=== PATIENT | male | born 1940 | race Caucasian/White ===

== ENCOUNTER → 2020-09-10 12:20 | Outpatient (CLI) | payer MEDICARE, OTHER, SELFPAY ==
[2020-09-10 21:20] LABS: COVID19 - ORCAS (NP or Nasal) Negative (Negative)
== END ==
PROVIDERS: Family Provider Family Medicine; PCP Family Medicine; Visit Provider Family Medicine
DX: Z20.822 Contact with and (suspected) exposure to COVID-19 (principal)
CPT/HCPCS: U0003

== ENCOUNTER → 2020-09-27 12:46 | Outpatient (CLI) | payer MEDICARE, SELFPAY ==
[2020-09-27 23:12] LABS: COVID19 - ORCAS (NP or Nasal) Negative (Negative)
== END ==
PROVIDERS: Family Provider Family Medicine; PCP Family Medicine; Visit Provider Family Medicine
DX: Z20.822 Contact with and (suspected) exposure to COVID-19 (principal)
CPT/HCPCS: U0003

== ENCOUNTER 2020-09-28 09:58 | Day surgery (SDC) | payer MEDICARE, OTHER, SELFPAY ==
[2020-09-28 10:39] VITALS: BP 115/69; PULSE 64; RESP 16; TEMP 36.6; O2SAT 96; BMI 30.1
[2020-09-28] MEDS: PROPARACAINE 0.5% OPHTH SOL 2 DROPS EYE-OP (10:39)
[2020-09-28] MEDS: CATARACT EYE COMPOUND (10 DROPS/SYRINGE) 3 DROPS EYE-OP (10:39)
--- NOTE | 2020-09-28 11:57 | PM.PREOP ---
Pre-operative Note Interval Note History & Physical reviewed/Exam performed by Physician: Yes Changes to H&P: No
--- NOTE | 2020-09-28 11:57 | PM.OP.1 ---
Operative Date/Time/Diagnoses Pre-op diagnosis: Nuclear cataract right eye Procedure & Clinicians Procedure: Cataract Surgery Same procedure as scheduled: Yes Surgeon: Fito Arnett Anesthesia Type: MAC +/- and Sedation Operative Notes Procedure in detail: Patient brought to the operating suite. Tetracaine drops placed in the right eye. Patient was prepped and draped in sterile manner. Wire lid speculum was placed in the eye. Betadine drops were placed on the eye. This was irrigated. Lidocaine jelly was placed on the eye. A paracentesis port was created with a side-port blade. 0.1 mL 1% preservative free lidocaine was injected into the anterior chamber. The anterior chamber was deepened with viscoelastic. 2.6 mm keratome was used to create a temporal clear corneal incision. Cystotome and Utrata forceps were used to create continuous tear capsulorrhexis. Balanced salt solution was used to hydro dissect the nucleus. The phacoemulsification handpiece was inserted and the nucleus was removed using the stop and chop technique. The irrigation aspiration handpiece was inserted and the remaining cortex was removed. Anterior chamber was deepened with viscoelastic. An Fowler DIB00 intraocular lens with a power of 22.5 was injected into the capsular bag. Irrigation aspiration handpiece was inserted and the remaining viscoelastic was removed. Incision was hydrated with balanced salt solution and found to be leak free with pressure with Weck-Luna sponges. 0.1 mL Vigamox injected anterior chamber. 0.3 mL Kenalog 10 mg was injected subconjunctivally. Lid speculum was removed. The patient left the operating room in excellent condition. Complications: none Post-operative Condition: stable Disposition: same day surgery
[2020-09-28] MEDS: PHENYLEPHRINE/LIDOCAINE VIAL (OR) 0.2 ML EYE-OP (12:15)
[2020-09-28] MEDS: TRIAMCINOLONE 50 MG/5 ML VIAL INJ (12:15)
[2020-09-28] MEDS: MOXIFLOXACIN INJ 4 MG/0.8 ML VIAL 0.5 MG EYE-OP (12:15)
[2020-09-28] MEDS: LIDOCAINE 2% (GLYDO) 6 ML GEL TOP (12:16)
[2020-09-28] MEDS: BALANCED SALT IRRIG SOLN NO.2 500 ML, EPINEPHrine 1 MG IRR (12:16)
[2020-09-28] MEDS: TETRACAINE 0.5% OPHTH DROPS 4 ML 2 DROPS EYE-OP (12:16)
[2020-09-28] MEDS: CHONDROIDTIN/SOD HYALURONATE 1.05 ML SYRINGE INTRAOCULA (12:16)
[2020-09-28 12:32] VITALS: BP 118/78; PULSE 60; RESP 14; TEMP 36.7; O2SAT 96
== END 2020-09-28 12:40 | disposition home or self-care (01) ==
PROVIDERS: Family Provider Family Medicine; PCP Internal Medicine; Referring Provider Family Medicine; Visit Provider Ophthalmology
PROC: (CPT 66984; principal; 2020-09-28 12:15)
DX: H25.11 Age-related nuclear cataract, right eye (principal); I10 Essential (primary) hypertension; E78.5 Hyperlipidemia, unspecified; I48.91 Unspecified atrial fibrillation; I51.9 Heart disease, unspecified
CPT/HCPCS: 66984; J0171; J2250; J3010; J3301

== ENCOUNTER → 2020-10-11 13:06 | Outpatient (CLI) | payer MEDICARE, OTHER, SELFPAY ==
[2020-10-11 20:32] LABS: COVID19 - ORCAS (NP or Nasal) Negative (Negative)
== END ==
PROVIDERS: Family Provider Family Medicine; PCP Internal Medicine; Visit Provider Internal Medicine
DX: Z20.822 Contact with and (suspected) exposure to COVID-19 (principal)
CPT/HCPCS: C9803; U0003

== ENCOUNTER 2020-10-12 08:40 | Day surgery (SDC) | payer MEDICARE, OTHER, SELFPAY ==
[2020-10-12 09:38] VITALS: BMI 30.8
[2020-10-12] MEDS: PROPARACAINE 0.5% OPHTH SOL 2 DROPS EYE-OP (09:40)
[2020-10-12] MEDS: CATARACT EYE COMPOUND (10 DROPS/SYRINGE) 3 DROPS EYE-OP (09:45)
[2020-10-12 09:46] VITALS: BP 122/69; PULSE 56; RESP 16; TEMP 37.1; O2SAT 97
--- NOTE | 2020-10-12 10:37 | P.OP_ITS ---
Operative Date/Time/Diagnoses Pre-op diagnosis: Nuclear Cataract Left eye Post-op diagnosis: same Procedure & Clinicians Same procedure as scheduled: Yes Surgeon: Fito Arnett Anesthesia Type: MAC +/- and Sedation Operative Notes Procedure in detail: Patient brought to the operating suite. Tetracaine drops placed in the left eye. Patient was prepped and draped in sterile manner. Wire lid speculum was placed in the eye. Betadine drops were placed on the eye. This was irrigated. Lidocaine jelly was placed on the eye. A paracentesis port was created with a side-port blade. 0.1 mL 1% preservative free lidocaine was injected into the anterior chamber. The anterior chamber was deepened with viscoelastic. 2.6 mm keratome was used to create a temporal clear corneal incision. Cystotome and Utrata forceps were used to create continuous tear capsulorrhexis. Balanced salt solution was used to hydro dissect the nucleus. The phacoemulsification handpiece was inserted and the nucleus was removed using the stop and chop technique. The irrigation aspiration handpiece was inserted and the remaining cortex was removed. During cortex removal a tear was visuali zed in the posterior capsule. This did not extend past the pupil and no vitreous presented. Anterior chamber was deepened with viscoelastic. The incision was enlarged. An Fowler [id number] intraocular lens with a power of 20.5 was injected into the sulcus. Irrigation aspiration handpiece was inserted and the remaining viscoelastic was removed. 0.1 ml miostat was injected in to the anterior chamber and the iris constricted. Incision was hydrated with balanced salt solution and found to be leak free with pressure with Weck-Luna sponges. 0.1 mL Vigamox injected anterior chamber. 0.3 mL Kenalog 10 mg was injected subconjunctivally. Lid speculum was removed. The patient left the operating room in excellent condition. Complications: none Post-operative Condition: stable Disposition: same day surgery
--- NOTE | 2020-10-12 10:37 | PM.PREOP ---
Pre-operative Note Interval Note History & Physical reviewed/Exam performed by Physician: Yes Changes to H&P: No
[2020-10-12] MEDS: TRIAMCINOLONE 50 MG/5 ML VIAL INJ (10:55)
[2020-10-12] MEDS: MOXIFLOXACIN INJ 4 MG/0.8 ML VIAL 0.5 MG EYE-OP (10:55)
[2020-10-12] MEDS: PHENYLEPHRINE/LIDOCAINE VIAL (OR) 0.2 ML EYE-OP (10:55)
[2020-10-12] MEDS: CHONDROIDTIN/SOD HYALURONATE 1.05 ML SYRINGE INTRAOCULA (10:56)
[2020-10-12] MEDS: TETRACAINE 0.5% OPHTH DROPS 4 ML 2 DROPS EYE-OP (10:56)
[2020-10-12] MEDS: BALANCED SALT IRRIG SOLN NO.2 500 ML, EPINEPHrine 1 MG IRR (10:56)
[2020-10-12] MEDS: LIDOCAINE 2% (GLYDO) 6 ML GEL TOP (10:56)
[2020-10-12] MEDS: CARBACHOL 1.5 ML VIAL INJ (11:07)
[2020-10-12 11:25] VITALS: BP 107/66; PULSE 58; RESP 16; TEMP 36.6; O2SAT 94
== END 2020-10-12 11:30 | disposition home or self-care (01) ==
PROVIDERS: Family Provider Family Medicine; PCP Internal Medicine; Referring Provider Ophthalmology; Visit Provider Ophthalmology
PROC: (CPT 66984; principal; 2020-10-12 10:45)
DX: H25.12 Age-related nuclear cataract, left eye (principal); E78.5 Hyperlipidemia, unspecified; I48.91 Unspecified atrial fibrillation; I11.0 Hypertensive heart disease with heart failure; E11.9 Type 2 diabetes mellitus without complications; Z79.01 Long term (current) use of anticoagulants
CPT/HCPCS: 66984; J0171; J2250; J3010; J3301

== ENCOUNTER → 2020-11-26 11:06 | Outpatient (CLI) | payer MEDICARE, OTHER, SELFPAY ==
[2020-11-27 07:42] LABS: Estimated Glomerular Filt Rate > 60.0 mL/min (>60)
== END ==
PROVIDERS: Family Provider Family Medicine; PCP Internal Medicine; Visit Provider Student in an Organized Health Care Education/Training Program
DX: R73.03 Prediabetes (principal); I71.4 Abdominal aortic aneurysm, without rupture
CPT/HCPCS: 82550; 82565

== ENCOUNTER → 2020-12-31 10:50 | Outpatient (CLI) | payer MEDICARE, OTHER, SELFPAY ==
[2020-12-31 21:59] LABS: COVID19 - ORCAS (NP or Nasal) Negative (Negative)
== END ==
PROVIDERS: Family Provider Family Medicine; PCP Internal Medicine; Visit Provider Physician Assistant Medical
DX: Z20.822 Contact with and (suspected) exposure to COVID-19 (principal)
CPT/HCPCS: U0003

== ENCOUNTER → 2021-02-25 08:34 | Outpatient (CLI) | payer MEDICARE, OTHER, SELFPAY ==
[2021-02-25 19:00] LABS: Basophils Absolute Auto 100 /uL (0-100); Eosinophils Absolute Auto 200 /uL (0-450); Hematocrit 41.1 % (41-53); Hemoglobin 13.7 g/dL (13.5-17.5); Lymphocytes Absolute Auto 1100 /uL (1100-4500); Lymphocytes Percent Auto 16.4 % (25-40); Mean Corpuscular Hemoglobin 31.6 PG (26-34); Monocytes Absolute Auto 700 /uL (0-900); Neutrophils Absolute Auto 4700 /uL (1500-7000)
[2021-02-25 19:06] LABS: Add Manual Diff / Slide Review NO; Basophils Percent Auto 1.3 % (0-2); Eosinophils Percent Auto 2.6 % (2-4); Mean Corpuscular HGB Conc 33.4 % (30-36); Mean Corpuscular Volume 94.4 fL (80-100); Monocytes Percent Auto 10.4 % (3-14); Neutrophils Percent Auto 69.3 % (50-75); Platelet Count 265 X10^3/uL (150-400); Red Blood Cell Count 4.35 X10^6/uL (4.5-5.9); Red Cell Distribution Width 13.3 % (11.6-14.8); White Blood Cell Count 6.8 X10^3/uL (4.5-11.0)
[2021-02-25 19:14] LABS: Alanine Aminotransferase 29 IU/L (<50); Albumin 3.9 g/dL (3.5-5.0); Albumin Globulin Ratio 1.3 (1.0-2.8); Alkaline Phosphatase 69 U/L (38-126); Aspartate Aminotransferase 31 IU/L (17-59); BUN Creatinine Ratio 27.3 (6-22); Bilirubin Total 0.6 mg/dL (0.2-1.3); Blood Urea Nitrogen 18 mg/dL (9-20); Calcium 10.4 mg/dL (8.4-10.2); Carbon Dioxide 27 mmol/L (22-32); Chloride 106 mmol/L (98-107); Cholesterol 122 mg/dL (140-199); Estimated Glomerular Filt Rate > 60.0 mL/min (>60); Globulin 2.9 g/dL (1.7-4.1); Glucose 117 mg/dL (80-110); HDL Cholesterol 44 mg/dL (40-60); HEMOLYSIS < 15 (0-50); LDL Cholesterol Calculated 57 mg/dL (<100); Potassium 4.4 mmol/L (3.4-5.1); Sodium 138 mmol/L (137-145); Total Protein 6.8 g/dL (6.3-8.2); Triglycerides 106 mg/dL (35-150)
[2021-02-25 19:20] LABS: Appearance Urine UA CLEAR; Bilirubin Urine UA NEGATIVE (NEGATIVE); Color Urine UA YELLOW; Glucose Urine UA NEGATIVE (Negative); Ketones Urine UA NEGATIVE (NEGATIVE); Leukocyte Esterase Urine UA NEGATIVE (NEGATIVE); Nitrite Urine UA NEGATIVE (Negative); Occult Blood Urine UA 3+ (Negative); Protein Urine UA NEGATIVE (Negative); Urobilinogen Urine UA 0.2 E.U./dL (0.2)
[2021-02-25 19:33] LABS: Bacteria Urine None Seen; Culture Indicated Urine Cult Not Indicated; RBC Urine 5-10/HPF (0-5/HPF); Squamous Epithelial Cell Urine 0-1 /HPF (0-5/HPF); WBC Urine 0-1/HPF (0-5/HPF)
== END ==
PROVIDERS: Family Provider Family Medicine; PCP Internal Medicine; Visit Provider Family Medicine
DX: R31.9 Hematuria, unspecified (principal); R73.03 Prediabetes; I10 Essential (primary) hypertension
CPT/HCPCS: 80053; 80061; 81001; 83036; 85025

== ENCOUNTER → 2021-05-25 08:55 | Outpatient (CLI) | payer MEDICARE, OTHER, SELFPAY ==
[2021-05-25 20:20] LABS: COVID19 - ORCAS (NP or Nasal) Negative (Negative)
== END ==
PROVIDERS: Family Provider Family Medicine; PCP Internal Medicine; Visit Provider Physician Assistant
DX: Z20.822 Contact with and (suspected) exposure to COVID-19 (principal)
CPT/HCPCS: C9803; U0003

== ENCOUNTER → 2022-04-06 10:53 | Outpatient (CLI) | payer MEDICARE, OTHER, SELFPAY ==
[2022-04-06 20:01] LABS: Alanine Aminotransferase 39 IU/L (<50); Albumin Globulin Ratio 1.1 (1.0-2.8); Alkaline Phosphatase 60 U/L (38-126); Aspartate Aminotransferase 35 IU/L (17-59); BUN Creatinine Ratio 28.6 (6-22); Bilirubin Total 0.5 mg/dL (0.2-1.3); Blood Urea Nitrogen 22 mg/dL (9-20); Carbon Dioxide 27 mmol/L (22-32); Chloride 106 mmol/L (98-107); Estimated Glomerular Filt Rate > 60 mL/min (>60); Globulin 3.5 g/dL (1.7-4.1); Glucose 93 mg/dL (80-110); HEMOLYSIS < 15 (0-50); Hemoglobin A1C% w Est Avg Glu 6.1 % (4.0-6.0); Potassium 4.4 mmol/L (3.4-5.1); Sodium 139 mmol/L (137-145); Total Protein 7.5 g/dL (6.3-8.2)
[2022-04-06 20:28] LABS: Thyroid Stimulating Hormone 2.41 uIU/mL (0.47-4.68)
== END ==
PROVIDERS: Family Provider Family Medicine; PCP Family Medicine; Visit Provider Family Medicine
DX: R73.03 Prediabetes (principal); I10 Essential (primary) hypertension
CPT/HCPCS: 80053; 83036; 84443

== ENCOUNTER → 2022-05-23 10:55 | Outpatient (CLI) | payer MEDICARE, OTHER, SELFPAY ==
[2022-05-23 19:31] LABS: Hemoglobin A1C% w Est Avg Glu 6.3 % (4.0-6.0)
[2022-05-23 19:38] LABS: Add Manual Diff / Slide Review NO; Basophils Absolute Auto 100 /uL (0-100); Basophils Percent Auto 1.2 % (0-2); Eosinophils Absolute Auto 200 /uL (0-450); Eosinophils Percent Auto 2.7 % (2-4); Hematocrit 41.1 % (41-53); Hemoglobin 13.6 g/dL (13.5-17.5); Lymphocytes Absolute Auto 1400 /uL (1100-4500); Lymphocytes Percent Auto 17.5 % (25-40); Mean Corpuscular HGB Conc 33.2 % (30-36); Mean Corpuscular Hemoglobin 31.3 PG (26-34); Mean Corpuscular Volume 94.2 fL (80-100); Monocytes Absolute Auto 800 /uL (0-900); Monocytes Percent Auto 10.8 % (3-14); Neutrophils Absolute Auto 5300 /uL (1500-7000); Neutrophils Percent Auto 67.8 % (50-75); Platelet Count 230 X10^3/uL (150-400); Red Blood Cell Count 4.37 X10^6/uL (4.5-5.9); Red Cell Distribution Width 13.7 % (11.6-14.8); White Blood Cell Count 7.8 X10^3/uL (4.5-11.0)
[2022-05-23 19:41] LABS: Cholesterol 169 mg/dL (140-199); HDL Cholesterol 51 mg/dL (40-60); LDL Cholesterol Calculated 67 mg/dL (<100); Triglycerides 255 mg/dL (35-150); Uric Acid 3.7 mg/dL (3.5-8.5)
[2022-05-23 19:49] LABS: Creatinine Urine Random 40.4 mg/dL
[2022-05-23 19:53] LABS: Microalbumi Creatinin Ratio Ur 34.6 ug/mg CR (<30); Microalbumin Urine Random 1.4 mg/dL (0-1.6)
[2022-05-23 20:25] LABS: Vitamin B12 283 pg/mL (239-931)
[2022-05-25 14:04] LABS: Albumin 3.6 g/dL (2.9-4.4); Alpha-1-Globulin 0.2 g/dL (0.0-0.4); Alpha-2-Globulin 0.9 g/dL (0.4-1.0); Gamma Globulin 1.2 g/dL (0.4-1.8); Globulin Total 3.5 g/dL (2.2-3.9); Protein, Total 7.1 g/dL (6.0-8.5)
== END ==
PROVIDERS: Physician Assistant; Family Provider Family Medicine; PCP Family Medicine; Visit Provider Family Medicine
DX: I10 Essential (primary) hypertension (principal); R73.09 Other abnormal glucose; E74.39 Other disorders of intestinal carbohydrate absorption; E78.2 Mixed hyperlipidemia; E83.52 Hypercalcemia; F32.5 Major depressive disorder, single episode, in full remission; G62.9 Polyneuropathy, unspecified; I25.118 Atherosclerotic heart disease of native coronary artery with other forms of angina pectoris; I48.20 Chronic atrial fibrillation, unspecified; M10.9 Gout, unspecified; R26.89 Other abnormalities of gait and mobility; Z95.828 Presence of other vascular implants and grafts
CPT/HCPCS: 80061; 82043; 82570; 82607; 83036; 84155; 84165; 84550; 85025

== ENCOUNTER → 2023-02-15 09:58 | Outpatient (CLI) | payer MEDICARE, OTHER, SELFPAY ==
[2023-02-15 20:02] LABS: Add Manual Diff / Slide Review NO; Basophils Absolute Auto 100 /uL (0-100); Basophils Percent Auto 0.8 % (0-2); Eosinophils Absolute Auto 200 /uL (0-450); Eosinophils Percent Auto 3.1 % (2-4); Hematocrit 41.7 % (41-53); Hemoglobin 14.1 g/dL (13.5-17.5); Lymphocytes Absolute Auto 1300 /uL (1100-4500); Lymphocytes Percent Auto 17.8 % (25-40); Mean Corpuscular HGB Conc 33.8 % (30-36); Mean Corpuscular Hemoglobin 32.3 PG (26-34); Mean Corpuscular Volume 95.6 fL (80-100); Monocytes Absolute Auto 800 /uL (0-900); Monocytes Percent Auto 11.4 % (3-14); Neutrophils Absolute Auto 4700 /uL (1500-7000); Neutrophils Percent Auto 66.9 % (50-75); Platelet Count 232 X10^3/uL (150-400); Red Blood Cell Count 4.37 X10^6/uL (4.5-5.9); Red Cell Distribution Width 13.7 % (11.6-14.8)
[2023-02-15 20:12] LABS: Creatinine Urine Random 31.7 mg/dL
[2023-02-15 20:16] LABS: Hemoglobin A1C% w Est Avg Glu 5.8 % (4.0-6.0)
[2023-02-15 20:18] LABS: Microalbumi Creatinin Ratio Ur 72.5 ug/mg CR (<30); Microalbumin Urine Random 2.3 mg/dL (0-1.6)
[2023-02-15 20:20] LABS: Blood Urea Nitrogen 15 mg/dL (9-20); Calcium 10.5 mg/dL (8.4-10.2); Carbon Dioxide 25 mmol/L (22-32); Chloride 103 mmol/L (98-107); Cholesterol 144 mg/dL (140-199); Estimated Glomerular Filt Rate > 60 mL/min (>60); Glucose 128 mg/dL (80-110); HDL Cholesterol 43 mg/dL (40-60); HEMOLYSIS < 15 (0-50); LDL Cholesterol Calculated 60 mg/dL (<100); Potassium 4.6 mmol/L (3.4-5.1); Sodium 136 mmol/L (137-145); Triglycerides 205 mg/dL (35-150)
[2023-02-15 21:09] LABS: Erythrocyte Sedimentation Rate 15 MM/HR (0-15)
== END ==
PROVIDERS: Family Provider Family Medicine; PCP Family Medicine; Visit Provider Family Medicine
DX: E11.9 Type 2 diabetes mellitus without complications (principal); I10 Essential (primary) hypertension; E78.5 Hyperlipidemia, unspecified; G62.9 Polyneuropathy, unspecified; I25.118 Atherosclerotic heart disease of native coronary artery with other forms of angina pectoris; I48.20 Chronic atrial fibrillation, unspecified
CPT/HCPCS: 80048; 80061; 82043; 82570; 83036; 85025; 85651

== ENCOUNTER → 2023-06-13 12:10 | Outpatient (CLI) | payer MEDICARE, OTHER, SELFPAY ==
[2023-06-13 19:53] LABS: Crystals Body Fluid - IN-HOUSE NONE Present
== END ==
PROVIDERS: Family Provider Family Medicine; PCP Family Medicine; Visit Provider Family Medicine
DX: M70.20 Olecranon bursitis, unspecified elbow (principal); M10.9 Gout, unspecified
CPT/HCPCS: 87070; 87075; 87205; 89060

== ENCOUNTER → 2023-07-12 11:23 | Outpatient (CLI) | payer OTHER, SELFPAY ==
[2023-07-12 19:28] LABS: Crystals Body Fluid - IN-HOUSE NONE Present
== END ==
PROVIDERS: Family Provider Family Medicine; PCP Family Medicine; Visit Provider Physician Assistant Medical
DX: M25.522 Pain in left elbow (principal); M70.20 Olecranon bursitis, unspecified elbow
CPT/HCPCS: 87070; 87075; 87077; 87147; 87186; 87205; 89060

== ENCOUNTER → 2023-07-25 10:27 | Outpatient (CLI) | payer MEDICARE, OTHER, SELFPAY ==
--- NOTE | 2023-07-25 10:30 | DI.MRI.S_ITS ---
PROCEDURE: MR ELBOW LT WO/W CON INDICATIONS: Recurrent infection elbow TECHNIQUE: Noncontrast coronal proton density fast spin echo and T2 fast spin echo with fat saturation, coronal T1 spin echo with fat saturation, axial and sagittal T1 spin echo and T2 fast spin echo with fat saturation through the elbow. Post-contrast coronal, axial, and sagittal T1 spin echo with fat saturation through the elbow. COMPARISON: None. FINDINGS: Image quality: Excellent. Lateral structures: The lateral ulnar collateral ligament and radial collateral ligament both appear intact. The overlying common extensor tendon also appears normal. Medial structures: The ulnar collateral ligament appears intact. The overlying common flexor tendon appears normal. The ulnar nerve appears normal in size and signal within the cubital tunnel. Anterior structures: The biceps and brachialis tendons both appear intact as they insert onto the proximal radius and ulna, respectively. No bicipitoradial bursal fluid. The median and radial neurovascular bundles appear normal; no focal muscle atrophy to suggest nerve impingement. Posterior structures: Thick-walled peripherally enhancing fluid collection measuring 3.9 x 1.5 by 3.0 cm is seen overlying the olecranon. There is a small fluid-filled tract extending through the central portion of the distal triceps tendon and extending proximally along the deep margin of the triceps tendon. There is focal high-grade partial tearing of the triceps tendon at the central portion of the distal insertion. The far medial and lateral portions of the triceps insertion are intact. Muscular insertions onto the posterior olecranon are intact. Soft tissue edema is seen throughout the posterior elbow. Bone and cartilage: Trace osseous edema is seen at the posterior olecranon. No definite osseous erosion is seen. The remaining osseous structures demonstrate normal signal intensity. No significant elbow effusion. IMPRESSION: 1. Peripherally enhancing fluid collection in the subcutaneous tissues posterior to the elbow measuring 3.9 x 1.5 x 3.0 cm, which may represent an abscess or infected olecranon bursal effusion. Fluid-filled tract extends through the adjacent triceps tendon and approximately along the deep tendon margin. 2. Focal high-grade partial width tearing of the distal triceps tendon at the insertion. 3. Trace osseous edema at the posterior olecranon without osseous erosion, likely reactive rather than secondary to osteomyelitis. No joint effusion or signs of septic arthritis. Approved by: Enio Light M.D. on 07/25/2023 at 13:53
== END ==
PROVIDERS: Family Provider Family Medicine; PCP Family Medicine; Referring Provider Family Medicine; Visit Provider Family Medicine
DX: M70.22 Olecranon bursitis, left elbow (principal); S46.312A Strain of muscle, fascia and tendon of triceps, left arm, initial encounter
CPT/HCPCS: 73223; A9579

== ENCOUNTER → 2023-09-03 12:20 | Outpatient (CLI) | payer MEDICARE, OTHER, SELFPAY ==
--- NOTE | 2023-09-03 12:21 | DI.MRI.S_ITS ---
PROCEDURE: MR LUMBAR SPINE WO CON INDICATIONS: Ba in low back radiating to legs TECHNIQUE: Noncontrast sagittal T1 spin echo and T2 fast echo, sagittal STIR, and T2 fast spin echo through the lumbar spine. In cases with scoliosis, additional coronal T2 fast spin echo may be performed. COMPARISON: None. FINDINGS: Image quality: Excellent. Alignment and Curvature: Mild retrolisthesis of L1 on L2, L2 on L3. Grade 1 anterolisthesis of L4 on L5. Mild retrolisthesis of L5 on S1. Bone Marrow: Mild fibrovascular endplate change at T11-T12. Spinal Cord: Conus medullaris terminates at the T12-L1 level. Visualized cord demonstrates normal signal and size. Paraspinous Soft Tissues: No paravertebral masses. T12-L1: Mild bilateral facet arthropathy. No stenosis. L1-L2: Posterior disc uncovering. Moderate bilateral facet arthropathy. Mild right neural foraminal stenosis. No left neural foraminal stenosis. No central canal stenosis. L2-L3: Posterior disc uncovering. Moderate bilateral facet arthropathy. Epidural lipomatosis. Moderate central canal stenosis. Mild right neural foraminal stenosis. No left neural foraminal stenosis. L3-L4: Mild disc bulge. Moderate bilateral facet arthropathy. Epidural lipomatosis. Moderate central canal stenosis. Mild left neural foraminal stenosis. No right neural foraminal stenosis. L4-L5: Posterior disc uncovering. Severe bilateral facet arthropathy. Moderate to severe central canal stenosis. No left neural foraminal stenosis. Mild right neural foraminal stenosis. L5-S1: Disc bulge. Mild bilateral facet arthropathy. No central canal stenosis. Mild right and left neural foraminal stenosis. Visualized sacrum is unremarkable. Large infrarenal abdominal aortic aneurysm, partially visualized. Right pelviectasis. Left renal cyst. IMPRESSION: 1. Large infrarenal abdominal aortic aneurysm, partially visualized. Recommend further evaluation with aortic ultrasound. 2. 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 Dictated by: Jeanna Martínez M.D. on 09/03/2023 at 14:42 Approved by: Jeanna Martínez M.D. on 09/03/2023 at 14:52
== END ==
PROVIDERS: Family Provider Family Medicine; PCP Family Medicine; Referring Provider Family Medicine; Visit Provider Family Medicine
DX: M48.062 Spinal stenosis, lumbar region with neurogenic claudication (principal); M48.07 Spinal stenosis, lumbosacral region; M47.816 Spondylosis without myelopathy or radiculopathy, lumbar region; M47.817 Spondylosis without myelopathy or radiculopathy, lumbosacral region; I71.43 Infrarenal abdominal aortic aneurysm, without rupture; M21.371 Foot drop, right foot; N28.1 Cyst of kidney, acquired
CPT/HCPCS: 72148

== ENCOUNTER → 2023-09-19 10:35 | Outpatient (CLI) | payer MEDICARE, OTHER, SELFPAY ==
[2023-09-19 19:27] LABS: Add Manual Diff / Slide Review NO; Basophils Absolute Auto 100 /uL (0-100); Basophils Percent Auto 0.8 % (0-2); Eosinophils Absolute Auto 100 /uL (0-450); Eosinophils Percent Auto 2.1 % (2-4); Hemoglobin 14.3 g/dL (13.5-17.5); Lymphocytes Absolute Auto 1200 /uL (1100-4500); Mean Corpuscular HGB Conc 33.9 % (30-36); Mean Corpuscular Hemoglobin 32.3 PG (26-34); Mean Corpuscular Volume 95.3 fL (80-100); Monocytes Absolute Auto 700 /uL (0-900); Monocytes Percent Auto 10.6 % (3-14); Neutrophils Absolute Auto 4700 /uL (1500-7000); Neutrophils Percent Auto 68.5 % (50-75); Platelet Count 256 X10^3/uL (150-400); Red Blood Cell Count 4.41 X10^6/uL (4.5-5.9); Red Cell Distribution Width 13.6 % (11.6-14.8); White Blood Cell Count 6.9 X10^3/uL (4.5-11.0)
[2023-09-19 19:48] LABS: Creatinine Urine Random 58.2 mg/dL
[2023-09-19 19:54] LABS: Microalbumi Creatinin Ratio Ur 99.6 ug/mg CR (<30); Microalbumin Urine Random 5.8 mg/dL (0-1.6)
[2023-09-19 19:58] LABS: Alanine Aminotransferase 58 IU/L (<50); Albumin 4.7 g/dL (3.5-5.0); Albumin Globulin Ratio 1.5 (1.0-2.8); Alkaline Phosphatase 65 U/L (38-126); Aspartate Aminotransferase 44 IU/L (17-59); BUN Creatinine Ratio 20.5 (6-22); Bilirubin Total 1.1 mg/dL (0.2-1.3); Blood Urea Nitrogen 17 mg/dL (9-20); Calcium 10.3 mg/dL (8.4-10.2); Carbon Dioxide 23 mmol/L (22-32); Chloride 107 mmol/L (98-107); Cholesterol 155 mg/dL (140-199); Estimated Glomerular Filt Rate > 60 mL/min (>60); Globulin 3.2 g/dL (1.7-4.1); Glucose 114 mg/dL (80-110); HDL Cholesterol 51 mg/dL (40-60); HEMOLYSIS < 15 (0-50); Hemoglobin A1C% w Est Avg Glu 6.4 % (4.0-6.0); LDL Cholesterol Calculated 58 mg/dL (<100); Potassium 4.5 mmol/L (3.4-5.1); Sodium 137 mmol/L (137-145); Total Protein 7.9 g/dL (6.3-8.2); Triglycerides 232 mg/dL (35-150)
[2023-09-19 20:28] LABS: TSH w/ Reflex to FT4 2.66 uIU/mL (0.47-4.68)
[2023-09-20 18:17] LABS: Hep C Virus Ab w/Reflex Quant NEGATIVE s/c (NEGATIVE)
[2023-09-21 19:13] LABS: Calcium 10.4 mg/dL (8.6-10.2); Parathyroid Hormone, Intact 37 pg/mL (15-65)
== END ==
PROVIDERS: Family Provider Family Medicine; PCP Family Medicine; Visit Provider Family Medicine
DX: I48.20 Chronic atrial fibrillation, unspecified (principal); I10 Essential (primary) hypertension; E11.9 Type 2 diabetes mellitus without complications; E83.52 Hypercalcemia; M10.9 Gout, unspecified; E78.5 Hyperlipidemia, unspecified; I25.118 Atherosclerotic heart disease of native coronary artery with other forms of angina pectoris; M35.3 Polymyalgia rheumatica
CPT/HCPCS: 80053; 80061; 82043; 82310; 82570; 83036; 83970; 84443; 85025; 86803

== ENCOUNTER 2023-10-08 07:42 | Inpatient (IN) | payer MEDICARE, OTHER, SELFPAY ==
[2023-10-04 08:26] VITALS: BMI 31.0
[2023-10-08] VITALS (17 sets, daily range): BP systolic 107–142; BP diastolic 54–97; PULSE 48–79; RESP 12–156; TEMP 36.1–36.6; O2SAT 92–100; BMI 30.1
[2023-10-08] MEDS: LACTATED RINGERS 1,000 ML 42 ML IV ×2 (08:10→11:45)
[2023-10-08] MEDS: ACETAMINOPHEN 325 MG TABLET 975 MG PO (08:12)
--- NOTE | 2023-10-08 09:30 | PM.PREOP ---
Pre-operative Note Interval Note History & Physical reviewed/Exam performed by Physician: Yes Changes to H&P: No
[2023-10-08] MEDS: CEFAZOLIN 2 GM/100 ML PREMIX 100 ML IV ×2 (10:20→18:59)
--- NOTE | 2023-10-08 10:31 | SUR.OPER ---
Prone on spine table, head in foam head support, padded chest and pelvic supports, gel pad at knees, lower legs supported by pillows; nipples, genitalia and toes free of pressure, arms secured on foam padded arm boards at <90 degrees abduction. Tape over blanket at thigh secured to table.
[2023-10-08] MEDS: BUPIVACAINE LIPOSOME 266 MG/20 ML VIAL INJ (10:40)
[2023-10-08] MEDS: BUPIVACAINE 0.25% (PF) 30 ML, EPINEPHrine 0.15 MG INJ (10:41)
--- NOTE | 2023-10-08 12:50 | DI.RAD.S_ITS ---
PROCEDURE: XR LUMBAR SPINE 2-3V INDICATIONS: L4-5 TLIF TECHNIQUE: Two intraoperative fluoroscopic images COMPARISON: [facility], MR, MR LUMBAR SPINE WO CON, 09/03/2023, 12:54. FINDINGS: 2 limited intraoperative fluoroscopic images demonstrate L4-5 posterior fusion hardware with bilateral transpedicular screws and interbody disc spacer. Hardware is intact. Partially visualized aorto bi-iliac endo graft and coils. IMPRESSION: Two intraoperative fluoroscopic images demonstrate L4-5 posterior fusion hardware with interbody disc spacer. Hardware is intact. Dictated by: Glen Howard M.D. on 10/08/2023 at 13:46 Approved by: Glen Howard M.D. on 10/08/2023 at 13:47
--- NOTE | 2023-10-08 12:59 | P.OP_ITS ---
Operative Date/Time/Diagnoses Date of procedure: 10/08/23 Time of procedure: 10:00 Pre-op diagnosis: 1. L4-5, L5-S1 spinal stenosis 2. L4-5 anterolisthesis Post-op diagnosis: same Procedure & Clinicians Procedure: 1. L4-5 Postero-lateral and posterior interbody fusion 2. L4-5 interbody cage placement. 3. L4-5 decompressive laminectomy with bilateral facetecomies 4. L4-5 Posterior non-segmental instrumentation 5. L5-S1 right hemilaminectomy 6. Howell of bone marrow from iliac crest 7. Utilization of microsurgical technique and operating microscope Same procedure as scheduled: Yes Indications: Patient has been having chronic back pain and worsening lumbar radiculopathy and symptoms of neurogenic claudication. Patient was found to have severe spinal stenosis L4-5 with anterolisthesis and lateral recess stenosis at L5-S1 correlating with his symptoms. Patient failed multiple conservative management with worsening pain weakness and numbness in his lower extremity. Patient has been having difficulty performing activity of daily living. After discussing risks benefits of treatment options, patient elected proceed with surgery. Surgeon: Adilson Toledo Director Of Academic: Anna Marie Ron Anesthesia Type: General Operative Notes Closure Type: primary Prosthetic devices, grafts, tissues, transplants, or devices: GLobus revolve screws, sable cage Estimated Blood Loss (mL): 100 Blood products transfused: none Procedure in detail: Patient was seen in the preoperative area. Risks and benefits of the surgery was discussed with the patient. Informed consent was obtained from the patient and placed in the chart. Surgical site was marked. Patient was taken to the operative room. General anesthesia was administered. Prophylactic antibiotic was given to the patient less than 30 min before the incision was made. Patient was placed into a prone position on the Elias table. Patient's back was then prepped and draped in the sterile fashion. Time-out was performed at this time. Using AP and lateral C-arm imaging the interval between L4-5 was identified and marked on patient's back. A 2 inch incision 2 in from midline was made on the right side first. The fascia was incised in line with skin incision. Globus MARS retractors was placed inside the incision and docked onto the L4 lamina. Using microsurgical technique and operating microscope, a for laminectomy and L4-5 facetectomy was performed using a Kerrison rongeur. The laminectomy and facetectomy was performed in order to decompress patient's cauda equina as well as the nerve roots exiting at the L4-5 level. The disc space at L4-5 was identified. And a total diskectomy was performed at L4-5 level. The endplates were decorticated using a rasp and shaver. The total diskectomy and decortication was performed at L4-5 level in order to to accomplish a L4-5 fusion. The local bone from the laminectomy and facetectomy was saved for local bone grafting. After the total diskectomy and decortication was completed, Globus viacell bone graft material was combined with local bone that was harvested earlier. At this time, a separate skin is incision was made over the iliac crest. A Jamshidi needle was inserted into the iliac crest through a separate skin incision. 5 cc of bone marrow aspiration was obtained through the separate skin incision using a Jamshidi needle from the iliac crest. The bone marrow aspiration was combined with local bone and the via cell bone grafting material. The bone grafting material was placed into the L4-5 interbody space along with a expandable cage. The cage was expanded to its maximum height using the torque limiting screwdriver. The cage was backfilled with additional bone grafting material to allow old fusion through the interbody cage. At this time the MARS retractor was redirected over the L5 lamina. Using microsurgical technique and operating microscope, a L5-S1 heminectomy was performed using the Kerrison rongeur. The ligamentum flavum was also resected at the side of the hemilaminectomy for further decompression of the epidural space. At this time a mirror image incision was made on the left side. The fascia was incised in line with the skin incision. Globus MARS retractor was inserted and docked onto the L4-5 posterolateral gutter. Using the power drill, posterior- lateral decortication was performed at L5 level until bleeding cortical bone was identified. The remaining bone grafting material was placed into the L4-5 posterior lateral gutter he order to accomplish posterolateral fusion at the L4- 5 level. Using the double C-arm technique, pedicle screws were placed into the L4 and L5 pedicles bilaterally. This was done by placing the Jamshidi needle into the pedicles, then placing the guidewires over the Jamshidi needle, and finally placing the cannulated screws over the guidewires bilaterally. After the pedicle screws were placed, 2 titanium rods was locked into the heads of the pedicle screws using locking caps and torque limiting screwdriver. Through the reducers were used to reduce patient's anterolisthesis which was reduced without difficulty. After all the hardware was placed, and confirmed with AP and lateral C-arm imaging, the wound was then irrigated with sterile normal saline and packed with Ray-Tiff gauze for 3 min to accomplish hemostasis. After the gauze was removed the deep fascia was closed with #1 Vicryl suture. The subcutaneous layer was closed with 2-0 Vicryl. The skin was closed with skin carol. Patient tolerated the procedure well. There were no complications. The Operation could not have been safely performed without compromising the technical result or length of the procedure, without the assistance of a skilled clinical lab assistant. The clinical lab assistant was medically necessary for proper positioning, retraction and manipulation of instruments, proper exposure, surgical preparation, and manipulation of tissue. EMG and SSEP were used to monitor patient's neurological status via neuro monitoring service. Patient's signals remained at baseline throughout the entire procedure without disturbance. Complications: none Post-operative Condition: stable Disposition: PACU Plan for aftercare: Admit to inpatient hospital
[2023-10-08] MEDS: HYDROMORPHONE 1 MG INJ IV ×4 (13:13→13:30)
[2023-10-08] MEDS: ONDANSETRON 4 MG/2 ML INJ IV (13:15)
[2023-10-08] MEDS: hydrOXYzine 50 MG/ML INJ 25 MG IM (13:18)
[2023-10-08] MEDS: OXYCODONE IR 5 MG TABLET PO ×3 (13:19→20:58)
[2023-10-08] MEDS: METOCLOPRAMIDE 10 MG/2 ML INJ IV (13:38)
[2023-10-08] MEDS: LACTATED RINGERS 1,000 ML 125 ML IV (14:20)
--- NOTE | 2023-10-08 14:39 | PC.NURSE ---
Patient arrived to room 216 approx 1410, settled by float RN. Dressing CDI. Patient has baseline bilateral LE neuropathy, reports chronic numbness and tingling to his legs, with hx. of right foot drop. Unchanged at this time, moving all extremities, and call light placed within reach. Continue to monitor.
[2023-10-08] MEDS: HYDROMORPHONE 0.5 MG INJ IV (16:10)
[2023-10-08] MEDS: ATORVASTATIN 20 MG TABLET 80 MG PO (20:59)
[2023-10-08] MEDS: VIT C/E/ZN/COPPR/LUTEIN/ZEAXAN CAPSULE 1 CAP PO (21:00)
[2023-10-08] MEDS: AMLODIPINE 5 MG TABLET 2.5 MG PO (21:00)
[2023-10-08] MEDS: SENNOSIDES 8.6 MG TABLET 17.2 MG PO (21:00)
[2023-10-08] MEDS: DOCUSATE 100 MG CAPSULE PO (21:00)
[2023-10-08] MEDS: SOTALOL 80 MG TABLET 120 MG PO (21:01)
[2023-10-09] MEDS: OXYCODONE IR 10 MG TABLET PO ×6 (00:27→21:54)
[2023-10-09] MEDS: LACTATED RINGERS 1,000 ML 125 ML IV (00:31)
[2023-10-09] MEDS: CEFAZOLIN 2 GM/100 ML PREMIX 100 ML IV (02:22)
--- NOTE | 2023-10-09 08:12 | PM.PNPO.1 ---
Subjective Subjective Date Patient Seen: 10/09/23 Time Patient Seen: 08:00 Interval history: Patient is found lying comfortably in bed. Says pain has been controlled with oxycodone approximately every 4 hours. The worst pain that he felt during the evening was 9/10. States he is able to urinate but has not been out bed yet. Denies any new numbness or tingling into his lower extremities. Exam Vital Signs (past 8 hours): Fraction of Inspired Oxygen 28 SaO2/FiO2 Ratio 335 Oxygen Delivery Method Nasal Cannula Oxygen Flow Rate 0 Narrative Exam Narrative: SCDs found on patient's calves and functional. Dressing is disrupted and blood seeping through the gauze. 5/5 strength in hip flexors, quadriceps, hamstrings, DF, EHL flexion bilaterally. 3/5 strength PF and EHL extension. Sensation to light touch intact throughout BLE. Calves soft, compressible, nontender. 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) AAA (abdominal aortic aneurysm) Vocal cord granuloma CELI on CPAP Hypercholesteremia HTN (hypertension) A-fib Surgical History (Updated 10/04/23 @ 10:44 by Licha Khan RN) Hx of appendectomy (1970) Hx of bilateral cataract extraction History of surgical procedure (08/30/21) Hx of heart artery stent (07/2013) S/P TKR (total knee replacement) Social History household members: spouse Smoking Status: Former smoker alcohol intake: current Assessment & Plan Post-op Postoperative Procedures: Procedures Operation Date: 10/08/23 09:15 Actual Procedure Side Surgeon p L4-5 TLIF, L5-S1 Right Hemilaminectomy Adilson Toledo MD Postoperative day: 1 Postoperative status: doing well Postoperative plan: routine post-op care and ambulate Postoperative plan narrative: Patient's pain is controlled with oral medications appears to have no postoperative complications at this time. He is concerned about returning home to [facility] as his only support he has is his 80-year-old was recently being treated for an injured shoulder. He would like to stay at least 1 more night but also considering rehab facility to alleviate undue burden to his . I explained to the patient that I would discuss his concerns with CM and they would follow up with them later in the day to discuss his discharge options. Continue with multimodal pain control. Continue to work with physical therapy. Follow up with CM with regards to discharge disposition tomorrow. Quality VTE Deep Vein Thrombosis/Pulmonary Embolism Present on Admission: No
[2023-10-09 08:40] VITALS: BP 138/77; PULSE 67; RESP 16; TEMP 37.3; O2SAT 95
[2023-10-09] MEDS: polyethylene glycoL 3350 17 GM POWD.PACK PO (09:11)
[2023-10-09] MEDS: SOTALOL 80 MG TABLET 120 MG PO ×2 (09:11→21:10)
[2023-10-09] MEDS: allopurinoL 100 MG TABLET 300 MG PO (09:12)
[2023-10-09 09:13] VITALS: BP 138/77; PULSE 67
[2023-10-09] MEDS: LOSARTAN 50 MG TABLET 100 MG PO (09:13)
[2023-10-09] MEDS: DOCUSATE 100 MG CAPSULE PO ×2 (09:13→21:01)
[2023-10-09] MEDS: VIT C/E/ZN/COPPR/LUTEIN/ZEAXAN CAPSULE 1 CAP PO ×2 (09:13→21:01)
[2023-10-09] MEDS: AMLODIPINE 5 MG TABLET 2.5 MG PO ×2 (09:13→21:05)
[2023-10-09] MEDS: SPIRONOLACTONE 25 MG TABLET PO (09:13)
[2023-10-09] MEDS: ACETAMINOPHEN 325 MG TABLET 650 MG PO ×2 (09:14→17:44)
--- NOTE | 2023-10-09 10:00 | PT.IIE ---
Current Diagnoses Spondylolisthesis, lumbar region (10/08/23) Spinal stenosis, lumbar region with neurogenic claudication (10/08/23) Surgery Performed Operation Date: 10/08/23 09:15 Actual Procedures p L4-5 TLIF, L5-S1 Right Hemilaminectomy - Adilson Toledo MD Surgical History (Last Updated 10/04/23 @ 10:44 by Licha Khan, RN) History of surgical procedure (08/30/21) Hx of appendectomy (1970) Hx of bilateral cataract extraction Hx of heart artery stent (07/2013) S/P TKR (total knee replacement) Medical History (Last Updated 10/04/23 @ 09:47 by Licha Khan RN) A-fib AAA (abdominal aortic aneurysm) 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) History of polymyalgia rheumatica HTN (hypertension) Hypercholesteremia Macular degeneration of right eye Neuropathy CELI on CPAP Paroxysmal A-fib PVCs (premature ventricular contractions) Spinal stenosis Vocal cord granuloma Physical Therapy Inpatient Evaluation/Re-Eval M1 PT/OT-IP Prior Functional Status Start: 10/09/23 11:39 Freq: NEEDED Status: Active Protocol: Document 10/09/23 10:00 AB (Rec: 10/09/23 11:55 AB [id number]) Medical Review Prior Functional Status Medical History Reviewed Yes Communication able to make needs known Mobility and Gait pt stated that he was modified independent with all mobilities and ambulation using SPC indoors and uses a 4WW for outdoor mobility. pt with h/o falls. stated that BLE just gives out. Social History Household Members spouse Living Arrangements House Number of Floors (Floors) One Floor Number of Stairs To Enter/Railing? 3 steps L rail ascending to enter the house Home Environment Standard Height Toilet,Walk in Shower Home Equipment Front Wheel Walker,Four Wheel Walker,Straight Cane,Shower Seat without Backrest Additional Social History Comment pt has a chair recliner at home pt's stated that spouse is still recovering from her shoulder sx ~ 1 year ago and is limited to the assistance she can provide pt. M2 PT-IP Current Condition Start: 10/09/23 11:39 Freq: NEEDED Status: Active Protocol: Document 10/09/23 10:00 AB (Rec: 10/09/23 11:55 [id number]) Physical Therapy Current Condition Current Condition Evaluation Date 10/09/23 Treatment Diagnosis s/p L4-5 TLIF; L5S1 R hemilaminectomy; difficulty in walkcing Onset Date 10/08/23 M3 PT-IP Subjective Start: 10/09/23 11:39 Freq: NEEDED Status: Active Protocol: Document 10/09/23 10:00 AB (Rec: 10/09/23 11:55 AB [id number]) Subjective Physical Therapy Visit Type Type Initial Evaluation Visit Start Time 10:00 Visit Stop Time 10:50 Number of RIPRAP WORKER Visits 0 Physical Therapy Visit Comments Patient Comments agreeable to do PT Therapy Pain Assessment Pain When Pain Assessed At Rest Pain Present Pain Present Pain Reported Location Back Intensity 2 Pain Management Techniques Distraction,Modification of Treatment,Re-positioning, Timing of Activity with Medications M4 PT-IP Mobility and Gait Start: 10/09/23 11:39 Freq: NEEDED Status: Active Protocol: Document 10/09/23 10:00 AB (Rec: 10/09/23 11:55 AB [id number]) PT-Bed Mobility Assessment Rolling Type of Rolling Log Rolling Level of Assist Minimal Assistance Supine to Sit Supine to Sit Standby Assistance PT-Transfer Assessment Sit to and From Stand Sit to and from Stand Minimal Assistance,1 Person Assistance,Use of Upper Extremities Equipment Transfer Assistive Device Gait Belt,Front Wheeled Walker Orthotic/Prosthetic Devices or Brace: No Transfers Transfer Destination Chair Transfer Technique ambulated Transfer Ability Level of Assist Contact Guard Assistance, Minimal Assistance,1 Person Assistance,Use of Upper Extremities Comments Mobility Comments pt supine in bed. spouse in room with pt. obtained PLOF and home set up from pt and spouse. post-op folder provided and reviewed contents . educated pt regarding back precautions and log roll bed mobility. BP in supine: 124/ 73. pt completed supine to sit log roll CGA to min A and max cues. pt able to sit on EOB SBA. initial c/o dizziness but dissipated after a few minutes of sitting. BP in sittin/74. pt completed sit to stand min A and ambulated in room using FWW CGA to min A ~ 30 ft and max cues. pt can be impulsive and easily gets anxious regquiring cues for safety and to slow down. pt agreed to sit up on the chair. positioned pt on the chair. call light and table placed within reach. set up caregiver training with spouse. pt has a meeting and cannot come back until 3pm. will attempt caregiver training but spouse also willing to do it tomorrow morning after 9 am. Gait Assessment Gait Gait Assistance Required: Contact Guard Assist,Minimum Assistance Distance (Feet) 30 Able to Maintain Weight Bearing Status Yes During Gait Assistive Devices Assistive Device Gait Belt,Front Wheeled Walker Orthotic/Prosthetic Devices or Brace: No Gait Deviations General Gait Pattern Decreased Stride Length, Decreased Feet Clearance Factors Limiting Gait Function Factors Limiting Gait Function Decreased Activity Tolerance, Decreased Strength,Difficulty Following Directions,Limited Range of Motion,Pain,Poor Balance,Poor Safety Awareness PT-Balance Assessment Sitting Balance and Reactions Static Sitting Balance Ability Good Dynamic Sitting Balance Ability Good Standing Balance and Reactions Static Standing Balance Ability Fair Dynamic Standing Balance Ability Fair Device Used FWW M5 PT-IP Objective Assessments Start: 10/09/23 11:39 Freq: NEEDED Status: Active Protocol: Document 10/09/23 10:00 AB (Rec: 10/09/23 11:55 AB [id number]) Orientation Orientation/Cognition Level of Alertness Alert Orientation Name,Place,Situation Language Function Ability Hard of Hearing Safety Awareness Decreased Safety Awareness Memory Description Short Term Impaired Gross Range of Motion Lower Extremity ROM Assessment Within Functional Limits Strength Lower Extremity Strength Assessment Right Impaired Ankle 3+/5 Coordination Assessment Gross Coordination Gross Coordination WNL Sensation Assessment Sensation Gross Sensation Right LE Impaired,Left LE Impaired Sensation Description Numbness Comments Sensation Comments BLE: feet neuropathy Muscle Tone Muscle Tone WNL Yes M6 PT-IP Treatment Start: 10/09/23 11:39 Freq: NEEDED Status: Active Protocol: Document 10/09/23 10:00 AB (Rec: 10/09/23 11:55 AB [id number]) Physical Therapy Treatment Education Education Provided Precautions,Weight Bearing Status,Post-Op Packet,Safety M7 PT-IP Assessment and Plan Start: 10/09/23 11:39 Freq: NEEDED Status: Active Protocol: Document 10/09/23 10:00 AB (Rec: 10/09/23 11:55 AB [id number]) PT Summary Assessment and Plan Potential Rehabilitation Potential Fair Status of Condition at Evaluation Evolving Summary Impairments Pain,ROM,Strength,Balance, Coordination,Sensation,Tone, Cognition,Bed Mobility, Transfers,Gait,Activity Tolerance Assessment Summary pt is an 83 y/o M who underwent L4-5 TLIF and L5S1 R hemilaminectomy POD 1. pt requiring CGA to min A with mobility using FWW. pt is worried about spouse being able to provide him assistance . caregiver training will be conducted when appropriate. Pt's spouse planning to be in for training this after ~ 3 pm . will continue to assess for safe d/c plan. Goals Bed Mobility Goal Independent Transfer Goal Independent,Front Wheeled Walker Gait Goal Independent,Front Wheel Walker Gait Distance 200 Other Goals up/down 3 steps L rail ascending SBA improve transfers and ambulation using LRAD 300 ft SBA Days to Meet Goals 10 Frequency of Treatment Frequency Of Treatment Twice a Day Treatment Plan Physical Therapy Treatment Plan Bed Mobility Training,Transfer Training,Gait Training, Therapeutic Exercise,Balance Retraining,Post Op Education, Discharge Planning,Hot or Cold Pack,Neuromuscular Re-ed, Coordination Retraining,Manual Therapy Precautions Lumbar Precautions Log Roll,No Twisting,Limit Bending,Lifting Restriction of 10 lbs,Gait Belt above Incisional Area Recommendations To Nursing Amount of Assist Needed 1 Person Assist Discharge Recommendations PT Discharge Recommendations Home with Assistance,Home Health,SNF Rehab,Home vs SNF Transportation Needs at Discharge Private Vehicle,Wheelchair/ Cabulance
[2023-10-09 14:06] VITALS: BP 114/63; PULSE 74; RESP 18; TEMP 36.9; O2SAT 97
--- NOTE | 2023-10-09 14:12 | OT.IP.EVAL ---
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) History of polymyalgia rheumatica HTN (hypertension) Hypercholesteremia Macular degeneration of right eye Neuropathy CELI on CPAP Paroxysmal A-fib PVCs (premature ventricular contractions) Spinal stenosis Vocal cord granuloma Surgical History (Last Updated 10/04/23 @ 10:44 by Licha Khan, DESTINY) History of surgical procedure (08/30/21) Hx of appendectomy (1970) Hx of bilateral cataract extraction Hx of heart artery stent (07/2013) S/P TKR (total knee replacement) Occupational Therapy Inpatient Evaluation/Re-Eval M1 PT/OT-IP Prior Functional Status Start: 10/09/23 11:39 Freq: NEEDED Status: Active Protocol: Document 10/09/23 14:16 [facility] (Rec: 10/09/23 14:33 [facility] [id number]) Medical Review Prior Functional Status Medical History Reviewed Yes Communication able to make needs known Mobility and Gait pt stated that he was modified independent with all mobilities and ambulation using SPC indoors and uses a 4WW for outdoor mobility. pt with h/o falls. stated that BLE just gives out. Activities of Daily Living and IADL's Pt had pain during ADl and IADL needs. Social History Household Members spouse Living Arrangements House Number of Floors (Floors) One Floor Number of Stairs To Enter/Railing? 3 steps L rail ascending to enter the house Home Environment Standard Height Toilet,Walk in Shower Home Equipment Front Wheel Walker,Four Wheel Walker,Straight Cane,Shower Seat without Backrest Additional Social History Comment pt has a chair recliner at home pt's stated that spouse is still recovering from her shoulder sx ~ 1 year ago and is limited to the assistance she can provide pt. M2 OT-IP Current Condition Start: 10/09/23 14:16 Freq: Status: Active Protocol: Document 10/09/23 14:16 [facility] (Rec: 10/09/23 14:33 [facility] [id number]) Occupational Therapy Current Condition Current Condition Evaluation Date 10/09/23 Treatment Diagnosis S/P L4-5 TLIF, L5-S1 R hemilaminectomy Diagnosis Onset Date 10/08/23 Post Operative Precautions Lumbar Precautions Log Roll,No Twisting,Limit Bending,Lifting Restriction of 10 lbs,Gait Belt above Incisional Area Weight Bearing Status Weight Bearing Status Weight Bear as Tolerated M3 OT- IP Subjective and Pain Start: 10/09/23 14:16 Freq: Status: Active Protocol: Document 10/09/23 14:16 [facility] (Rec: 10/09/23 14:33 [facility] [id number]) OT- Subjective Occupational Therapy Visit Type Type Initial Evaluation Visit Start Time 13:30 Visit Stop Time 14:12 Occupational Therapy Visit Comments Patient Comments Pt agreed to get up with OT for eval. Patient/Caregiver Goals To go home. OT Pain Assessment Pain When Pain Assessed At Rest Pain Present Pain Present Pain Reported Location Back Intensity 4 Scale Used Numeric (0 - 10) M4 OT- IP ADL's Start: 10/09/23 14:16 Freq: Status: Active Protocol: Document 10/09/23 14:16 [facility] (Rec: 10/09/23 14:33 [facility] [id number]) OT [id number] General Evaluation Self-Feeding Ability Independent OT ADL-Grooming General Evaluation Grooming Ability Standby Assistance Areas Needing Assistance Retrieving/Set-up of Grooming Items Comments OT Grooming Comments Assist for set-up and able to do while standing with the FWW . OT ADL-Oral Care General Eval Oral Care Ability Standby Assistance Areas of Assistance Retrieving/Set-Up of Items Comments Oral Care Comments VC to hinge at his hips or spit into a cup to best follow his back precautions. OT ADL-Dressing General Eval Lower Body Dressing Ability Maximum Assistance Areas Needing Assistance Socks Comments OT Dressing Comments Able to show pt use of horticulture teacher and sock aid to assist for LB dressing needs. Pt states has slip in shoes and that his is able to assist. OT ADL-Toileting General Evaluation Toileting Ability Standby Assistance Comments OT Toileting Comments Pt able to simulate wiping and follow his back precautions and also able to stand with the FWW over the toilet to urinate. Suggested use of wet ones and brief if needed. Also suggested to take a urinal home. In addition if his toilet at home is too low a BSC can be helpful. Pt states already picked up a RTS. OT ADL-Bathing Comments OT Bathing Comments Called nursing to reinforce his dressing. Educated pt of covering the dressing for showering needs. Long handled sponge issued to pt. M5 OT- IP IADL's Start: 10/09/23 14:16 Freq: Status: Active Protocol: Document 10/09/23 14:16 [facility] (Rec: 10/09/23 14:33 [facility] [id number]) OT-Instrumental Activities of Daily Living Deficits IADL Deficits Identified Deficits Home Safety Awareness Awareness of Need for Assistance at Home Good Awareness Ability to Problem Solve Emergency Able to Problem Solve Situations Home Safety Comments Pt's to be home to proved supervisions and some assist. Medication Management Medication Management Comments Pt's able to assist. Money Management Money Management Caregiver Provides Assistance Meal Preparation Meal Preparation Caregiver Provides Assist Compass Operator Compass Operator Caregiver Provides Assist M6 OT- IP Functional Cognition Start: 10/09/23 14:16 Freq: Status: Active Protocol: Document 10/09/23 14:16 [facility] (Rec: 10/09/23 14:33 [facility] [id number]) Cognitive Factors Limiting Selfcare Function Cognitive Ability Level of Alertness Alert Patient Orientation Name,Age,Birthday,Month,Date, Year,Day of Week,Place, Situation Attention Span Ability Capable of Focused Attention, Capable of Sustained Attention Ability to Follow Commands Able to Follow One Step Commands with Increased Time, Able to Follow One Step Commands with Repetition Safety Awareness Decreased Ability to Apply Precautions Cognitive Comments Cognitive Assessment Comments Pt a little groggy and needing reminders to incorporate his back precautions for ADL and mobility needs. VC for safety awareness to keep the Fww in front and to use his hands to push up from surfaces when coming to stand. OT- Vision and Hearing OT- Hearing Assessment OT- Hearing Assessment Hearing Impaired,Use of Hearing Aids OT- Vision Assessment Visual Acuity Glasses All The Time Visual Attentiveness WFL Occular Pursuits WFL Visual Convergence WFL M7 OT- IP Mobility and Balance Start: 10/09/23 14:16 Freq: Status: Active Protocol: Document 10/09/23 14:16 [facility] (Rec: 10/09/23 14:33 [facility] [id number]) OT- Bed Mobility Assessment Supine to Sit Supine to Sit Assist Standby Assistance Sit to Supine Sit to Supine Assist Standby Assistance Scooting Scooting to Edge of Bed Standby Assistance Scooting Up and Down in Bed Contact Guard Assistance OT-Transfer Assessment Sit to and From Stand Sit to and from Stand Standby Assistance Transfers Transfer Ability Standby Assistance Technique Transfer Destination Bed,Chair,Toilet Transfer Technique Stand Step Pivot Devices Transfer Assistive Devices Gait Belt,Front Wheeled Walker Comments Mobility Comments Pt needing cues for log rolling and able to practice with use of bed rail, fww on the side and then pt able to do on his own with SBA. VC for FWW safety. OT- Balance Assessment Sitting Balance and Reactions Static Sitting Balance Ability Normal Dynamic Sitting Balance Ability Good Standing Balance and Reactions Static Standing Balance Ability Good Dynamic Standing Balance Ability Fair M8 OT- IP Objective Assessments Start: 10/09/23 14:16 Freq: Status: Active Protocol: Document 10/09/23 14:16 [facility] (Rec: 10/09/23 14:33 [facility] [id number]) OT Gross Range of Motion Upper Extremity Range of Motion Assessment Within Functional Limits M9 OT- IP Assessment and Plan Start: 10/09/23 14:16 Freq: Status: Active Protocol: Document 10/09/23 14:16 [facility] (Rec: 10/09/23 14:33 [facility] [id number]) OT Summary Assessment and Plan Potential Rehabilitation Potential Excellent Analytic Complexity at Evaluation Low Summary OT Impairments Pain,Balance,Functional Mobility,Dressing,Toileting, Bathing,Toilet Transfers, Shower Transfers Progress Towards Goals Progressing Toward Goals Assessment Summary Pt low complexity and main barriers are steps, needing reassurance for his back precautions and will benefit from getting LB dressing equipment and possibly a BSC. Pt to go home with his when medically stable. Goals Grooming Goal Independent Dressing Goal Independent,Long Handled Shoe Horn,Social Media Intern,Sock Aid Toileting Goal Independent Bathing Goal Standby Assistance Toilet Transfer Goal Independent Shower Transfer Goal Standby Assistance Patient/Caregiver Education Goal Demonstrate Post-Op Precautions Days to Meet Goals 3 Frequency of Treatment Frequency Of Treatment Once a Day Treatment Plan OT Treatment Plan ADL Training,Functional Mobility,Patient/Family Education,Discharge Planning Discharge Recommendations OT Discharge Recommendations Home with Assistance Home Equipment Needs BSC?, horticulture teacher, sock aid Transportation Needs at Discharge Private Vehicle
--- NOTE | 2023-10-09 15:10 | PT.IPTN ---
Current Diagnoses Spondylolisthesis, lumbar region (10/08/23) Spinal stenosis, lumbar region with neurogenic claudication (10/08/23) Surgery Performed Operation Date: 10/08/23 09:15 Actual Procedures p L4-5 TLIF, L5-S1 Right Hemilaminectomy - Adilson Toledo MD Physical Therapy Treatment Note M2 PT-IP Current Condition Start: 10/09/23 11:39 Freq: NEEDED Status: Active Protocol: Document 10/09/23 10:00 AB (Rec: 10/09/23 11:55 AB [id number]) Physical Therapy Current Condition Current Condition Evaluation Date 10/09/23 Treatment Diagnosis s/p L4-5 TLIF; L5S1 R hemilaminectomy; difficulty in walkcing Onset Date 10/08/23 M3 PT-IP Subjective Start: 10/09/23 11:39 Freq: NEEDED Status: Active Protocol: Document 10/09/23 15:10 AB (Rec: 10/09/23 16:49 AB [id number]) Subjective Physical Therapy Visit Type Type Treatment Note Visit Start Time 15:10 Visit Stop Time 16:30 Number of BED AND BREAKFAST COOK Visits 0 Physical Therapy Visit Comments Patient Comments agreeable to do PT Therapy Pain Assessment Pain When Pain Assessed At Rest Pain Present Pain Present Pain Reported Location Back Scale Used pain scale not stated Pain Management Techniques Distraction,Modification of Treatment,Re-positioning, Timing of Activity with Medications M4 PT-IP Mobility and Gait Start: 10/09/23 11:39 Freq: NEEDED Status: Active Protocol: Document 10/09/23 15:10 AB (Rec: 10/09/23 16:49 AB [id number]) PT-Bed Mobility Assessment Rolling Type of Rolling Log Rolling Level of Assist Standby Assistance Supine to Sit Supine to Sit Standby Assistance Sit to Supine Sit to Supine Standby Assistance PT-Transfer Assessment Sit to and From Stand Sit to and from Stand Contact Guard Assistance, Minimal Assistance,1 Person Assistance,Use of Upper Extremities Equipment Transfer Assistive Device Gait Belt,Front Wheeled Walker Orthotic/Prosthetic Devices or Brace: No Comments Mobility Comments pt supine in bed. spouse in room. caregiver training conducted. pt completed bed mobility log roll supine to sit SBA and spouse was able to cue pt. pt was able to sit on EOB SBA. educated spouse on how to manage safety belt and how to assist pt. spouse was able to put safety belt on pt. pt completed sit to stand from EOB with spouse assisting. pt with posterior trunk leaning and unable to stand on first attempt. sit<>stand training. educated pt on sit<>stand techniques. PT demonstrated and instructed pt and spouse on how to do sit <>stand. pt completed sit <>stand with PT assisting CGA to min A and max cues. pt is impulsive. pt repeated x 2 reps. pt completed sit to stand again with spouse assisting x 2 reps CGA to min A. spouse was able to ambulate pt in room using FWW CGA to min A. instructed spouse to cue pt for steadiness and R quads activation. pt sat on the chair and rested. pt agreed to do stairs. pt completed sit to stand from the chair with spouse assisting min A and cues and pt ambulated in the hallway using FWW CGA to min A ~ 50 ft . assisted pt towards the stairs . educated spouse and pt on how to do stairs. PT demonstrated and instructed on how to do stairs using L rail + SPC. pt completed up/down steps using L rail + SPC with PT assisting on first set requiring min A to mod and max cues. pt rested on the chair seated. pt continues to be impulsive and tends to move FWW away to reach for the w/c to sit. pt completed stair climbing again with spouse assisting and completed with max cues. LOB posterior with last step descending with slight R knee buckling. PT assisted pt to steady. pt sat back on w/c. assisted pt back to his room. pt ambulated from w/c to bed using FWW CGA to occasionaly min A. pt completed sit to supine log roll SBA. positioned pt on the chair. call light and table placed within reach. spouse stated that she is in pain after assisting pt and that she does not think she will be able to assist pt at home if she has to assist him the whole day. Pt and spouse wanting for pt to go to SNF but wants to do another caregiver training tomorrow. set up for 930 am tomorrow. Gait Assessment Gait Gait Assistance Required: Contact Guard Assist,Minimum Assistance Distance (Feet) 50 Able to Maintain Weight Bearing Status Yes During Gait Assistive Devices Assistive Device Gait Belt,Front Wheeled Walker Orthotic/Prosthetic Devices or Brace: No Gait Deviations General Gait Pattern Decreased Stride Length, Decreased Feet Clearance Factors Limiting Gait Function Factors Limiting Gait Function Decreased Activity Tolerance, Decreased Strength,Difficulty Following Directions,Limited Range of Motion,Pain,Poor Balance,Poor Safety Awareness Stair Climbing Assessment Evaluation Level of Assist On Stairs Minimal Assistance,Moderate Assistance Devices Stair Climbing Assistive Devices Straight Cane,Left Railing Technique/Endurance Stair Climbing Direction Ascend and Descend Stair Climbing Technique Step to Step Number of Steps Climbed 3 Stair Climbing Set # Repetitions (reps) 2 M5 PT-IP Objective Assessments Start: 10/09/23 11:39 Freq: NEEDED Status: Active Protocol: Document 10/09/23 10:00 AB (Rec: 10/09/23 11:55 AB [id number]) Orientation Orientation/Cognition Level of Alertness Alert Orientation Name,Place,Situation Language Function Ability Hard of Hearing Safety Awareness Decreased Safety Awareness Memory Description Short Term Impaired Gross Range of Motion Lower Extremity ROM Assessment Within Functional Limits Strength Lower Extremity Strength Assessment Right Impaired Ankle 3+/5 Coordination Assessment Gross Coordination Gross Coordination WNL Sensation Assessment Sensation Gross Sensation Right LE Impaired,Left LE Impaired Sensation Description Numbness Comments Sensation Comments BLE: feet neuropathy Muscle Tone Muscle Tone WNL Yes M6 PT-IP Treatment Start: 10/09/23 11:39 Freq: NEEDED Status: Active Protocol: Document 10/09/23 15:10 AB (Rec: 10/09/23 16:49 AB [id number]) Physical Therapy Treatment Education Education Provided Safety M7 PT-IP Assessment and Plan Start: 10/09/23 11:39 Freq: NEEDED Status: Active Protocol: Document 10/09/23 15:10 AB (Rec: 10/09/23 16:49 AB [id number]) PT Summary Assessment and Plan Potential Rehabilitation Potential Fair Summary Impairments Pain,ROM,Strength,Balance, Coordination,Sensation,Tone, Cognition,Bed Mobility, Transfers,Gait,Activity Tolerance Progress Towards Goals Slow Progress - Other Assessment Summary pt requiring CGA to min A with mobility using FWW. caregiver training conducted but further training is needed. spouse concerned if she will be able to assist pt at home due to her own medical issues and c/o pain after training. Pt will require SNF rehab at this time but will continue to assess progress. Spouse still wants to continue with caregiver training and set up for tomorrow at 930 am. Goals Bed Mobility Goal Independent Transfer Goal Independent,Front Wheeled Walker Gait Goal Independent,Front Wheel Walker Gait Distance 200 Other Goals up/down 3 steps L rail ascending SBA improve transfers and ambulation using LRAD 300 ft SBA Days to Meet Goals 10 Frequency of Treatment Frequency Of Treatment Twice a Day Treatment Plan Physical Therapy Treatment Plan Bed Mobility Training,Transfer Training,Gait Training, Therapeutic Exercise,Balance Retraining,Post Op Education, Discharge Planning,Hot or Cold Pack,Neuromuscular Re-ed, Coordination Retraining,Manual Therapy Precautions Lumbar Precautions Log Roll,No Twisting,Limit Bending,Lifting Restriction of 10 lbs,Gait Belt above Incisional Area Recommendations To Nursing Amount of Assist Needed 1 Person Assist Discharge Recommendations PT Discharge Recommendations Home with 11/12 Assist Available,Home Health,SNF Rehab,Home vs SNF Transportation Needs at Discharge Private Vehicle,Wheelchair/ Cabulance
--- NOTE | 2023-10-09 15:35 | CM.DANOTE ---
Initial DCP Assessment Visit Note Reviewed EMR and team rounds for pt's medical status and updates. Went to meet with pt/spouse at bedside, however he was busy working with PT at the time. Will plan to meet with them tomorrow am in order to discuss SNF preference and d/c resource needs. Pt resides modified independently with his on [facility], where there are limited resources available for assistance. Once approved for SNF placement, the facility will transport him. Payor: Medicare Attending: Dr. Toledo Pt is a 83 year-old M post-op day 1 from a TLIF surgery. He is doing well postoperatively with no concerns, pain is well managed. Pt did express to Ortho that he was concerned about returning home to [place] with only his to assist him w/recovery needs, as she has not recovered well herself from her own shoulder surgery 1-year ago. PT/OT have both evaluated him, he was only able to participate minimally this am with PT, this FULFILLMENT COORDINATOR will continue to follow and assist with final recommendations, that could be home vs. SNF depending on how he progresses. Discharge Planning/Care Management CM Discharge Assessment Start: 10/09/23 15:32 Freq: Status: Active Protocol: Document 10/09/23 15:32 DPL (Rec: 10/09/23 15:35 DPL [id number]) Discharge Planning Assessment Assigned Printing Supervisor JEANNE Barrera Advance Directives? Yes Advance Directives on File Yes: brought them in today History Provided By Medical Record Has Patient been admitted in last 30 No days? Prior Living Arrangements House Household Members spouse Type of transporation used prior to Relies on Others admit Independent with ADL's No: Modified independent, uses a cane indoors and a 4WW outdoors. Is patient alert and oriented? Yes Needs Assistance With Home Chores / Shopping DME Already Rented / Owned Bath Bench,Elevated Toilet Seat,FWW / Walker,Cane Patient/Family Preference Custodial Facility Barriers to Discharge No Discharge Plan Custodial Facility Community Services Physical Therapy,Occupational Therapy Referrals Initiated Custodial Additional Comment Plan to send referral to [facility] after confirming w/ pt. If patient plan is SNF: Has PASSR been No completed? Medicare Choice List Provided No Comment Will meet with pt tomorrow to discuss SNF preference. Whiteboard Updated in Patient Room with No name and ext. # of Printing Supervisor Comment Will complete next visit, tomorrow am. Review Status In Process Please Provide Date Initial DC 10/09/23 Assessment Was Performed Pre-Anesthesia Assessment Start: 10/04/23 08:25 Freq: Status: Active Protocol: Document 10/04/23 08:26 CAB (Rec: 10/04/23 09:49 CAB [id number]) Pre-Anesthesia Assessment PAC Comment Pt is requesting an anesthesiologist vs. 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 Patient Information Reviewed Via Phone Assessment Assessment Completed With Patient Comment Outside EKG scanned Primary Care Provider Jesus Koroma Seen Specialist in Last 12 Months Yes Specialist Seen Rn Case Management,Parachute Repairer, Orthopedist,Other Comment Vascular surgeon visit scanned and in surgery folder Primary Language Zambian Preferred Language Zambian Purchase Analyst Required No Height 175.26 cm Weight 95.254 kg Body Mass Index (BMI) 31.0 Hearing Ability Hearing Impaired,Use of Hearing Aid Visual Assist Glasses Dentition Type Teeth, Natural Present,Teeth, Missing Barriers to Learning None Other Aids No Hx Anesthesia Reactions No Hx Family Anesthesia Reaction No Hx Malignant Hyperthermia No Hx Blood Transfusions No Anesthesia Review Requested No Marketing Communications Coordinator No alcohol intake current alcohol intake frequency 0-2 drinks per day Smoking Status Former smoker Tobacco type cigarettes,pipe how long ago did patient quit smoking Quit approx 1989 Substance Use Type does not use Pain Present Pain Reported Musculoskeletal Symptoms Abnormal Gait,Back Pain, Difficulty Walking,Muscle Weakness,Numbness,Radiating Pain into Limb,Tingling History of Falling (Recent or History of Yes ) Patient is completely paralyzed or No completely immobile Prosthesis or Orthotic Device Cane,Front Wheel Walker Mental Status Oriented to own ability Is patient on oxygen? No Does patient have ESTRELLA/SOB No Hx Sleep Apnea Yes CPAP/BIPAP use prescribed and used routinely Will Bring CPAP/BIPAP DOS Yes Currently Taking a Beta Ama Yes: [place]otalol Can You Climb a Flight of Stairs Without No: Pt unable to climb stairs SOB due to back pain Hx Chest Pain No: Pt denies ever having angina Hx SOB No Hx Syncope or Dizziness No Anti-Coagulant Therapy Yes: Xarelto - hold [address] Carmichael, 2 days per surgeon Has a Rn Case Management Yes: Last visit-tele pre-op visit 09/26/[address] Carmichael Cardiac Testing No Hx Pacemaker/ICD No Pacemaker Rep Required? No Cardiac Clearance Received Yes Comment Cardiac records scanned and in surgery folder Diet Type At Home Regular,Low Carb Dysphagia No Gastrointestinal Symptoms None Urinary Catheter Present No Hx Urinary Self Catheterization No Diabetes Yes HgbA1C 6.4 Date 09/19/23 Hx Drug Resistant Organism No Presence of External or Internal Medical Yes: cardiac stents, right Devices knee prosthesis, aortic coil Received a COVID vaccine? Yes Received all doses? Yes Marital Status Lives With spouse Current Living Arrangements House Number of Floors (Floors) One Floor Support System Spouse Does the Patient Have Assistance After Yes: Pt concerned about Surgery physical abilities w/ Patient Discharge Plan Description Return Home Comment Pt advised overnight length of stay per surgeon Additional comment Pt lives on [facility] Feels Safe in Current Environment Yes Been Physically Hurt or Threatened By a No Person in Current Environment Do you have thoughts of harming yourself None or others? Are you currently considering suicide? No Do you have a plan to hurt yourself or No Plan others? Do You Have Any Spiritual Beliefs That No May Affect Your HC Choices? Do You Have Any Cultural Practices That No May Affect Your HC Choices? Comment Agnostic Who Can We Speak to About Patient's Care Family, friends Identifying Code for Release of Patient Declines to issue Information Health Care Proxy/Next of Kin Anne () Health Care Proxy cell [phone] Emergency Contact Name Anne () Emergency Contact cell [phone] Advance Directives? Yes Advance Directives on File No Requested Patient Bring Advanced Yes Directives DOS Power of Toolroom Clerk Yes Power of Toolroom Clerk Name Anne () Power of Toolroom Clerk cell [phone] PAC Instructions Bring CPAP/BIPAP,Durable medical equipment,Medications to take/avoid,Nasal antibiotic ,No ETOH/petroleum product on skin DOS,NPO,Pre-surgical wash ,Sensory aids,Sturdy shoes/ comfortable clothes,Do not bring valuables and remove jewelry
--- NOTE | 2023-10-09 16:15 | OT.IP.TRT ---
Current Diagnoses Spondylolisthesis, lumbar region (10/08/23) Spinal stenosis, lumbar region with neurogenic claudication (10/08/23) Surgery Performed Operation Date: 10/08/23 09:15 Actual Procedures p L4-5 TLIF, L5-S1 Right Hemilaminectomy - Adilson Toledo MD Occupational Therapy Treatment Note M2 OT-IP Current Condition Start: 10/09/23 14:16 Freq: Status: Active Protocol: Document 10/09/23 14:16 [facility] (Rec: 10/09/23 14:33 [facility] [id number]) Occupational Therapy Current Condition Current Condition Evaluation Date 10/09/23 Treatment Diagnosis S/P L4-5 TLIF, L5-S1 R hemilaminectomy Diagnosis Onset Date 10/08/23 Post Operative Precautions Lumbar Precautions Log Roll,No Twisting,Limit Bending,Lifting Restriction of 10 lbs,Gait Belt above Incisional Area Weight Bearing Status Weight Bearing Status Weight Bear as Tolerated M3 OT- IP Subjective and Pain Start: 10/09/23 14:16 Freq: Status: Active Protocol: Document 10/09/23 16:34 [facility] (Rec: 10/09/23 16:41 [facility] [id number]) OT- Subjective Occupational Therapy Visit Type Type Treatment Note Visit Start Time 16:15 Visit Stop Time 16:30 Occupational Therapy Visit Comments Patient Comments Pt trying to get up to use the bathroom when OT came to talk to his as PT just completed caregiver training with pt and his . Patient/Caregiver Goals Pt's feels that being able to assist the pt with steps in too much for her as state now feels that her back is sore from trying to assist the pt with steps earlier. Pt and now requesting skilled rehab. Pt now too tired to try to get up to the bathroom and states to just use the urinal. M5 OT- IP IADL's Start: 10/09/23 14:16 Freq: Status: Active Protocol: Document 10/09/23 14:16 [facility] (Rec: 10/09/23 14:33 [facility] [id number]) OT-Instrumental Activities of Daily Living Deficits IADL Deficits Identified Deficits Home Safety Awareness Awareness of Need for Assistance at Home Good Awareness Ability to Problem Solve Emergency Able to Problem Solve Situations Home Safety Comments Pt's to be home to proved supervisions and some assist. Medication Management Medication Management Comments Pt's able to assist. Money Management Money Management Caregiver Provides Assistance Meal Preparation Meal Preparation Caregiver Provides Assist Reversal Print Inspector Reversal Print Inspector Caregiver Provides Assist M6 OT- IP Functional Cognition Start: 10/09/23 14:16 Freq: Status: Active Protocol: Document 10/09/23 14:16 [facility] (Rec: 10/09/23 14:33 [facility] [id number]) Cognitive Factors Limiting Selfcare Function Cognitive Ability Level of Alertness Alert Patient Orientation Name,Age,Birthday,Month,Date, Year,Day of Week,Place, Situation Attention Span Ability Capable of Focused Attention, Capable of Sustained Attention Ability to Follow Commands Able to Follow One Step Commands with Increased Time, Able to Follow One Step Commands with Repetition Safety Awareness Decreased Ability to Apply Precautions Cognitive Comments Cognitive Assessment Comments Pt a little groggy and needing reminders to incorporate his back precautions for ADL and mobility needs. VC for safety awareness to keep the Fww in front and to use his hands to push up from surfaces when coming to stand. OT- Vision and Hearing OT- Hearing Assessment OT- Hearing Assessment Hearing Impaired,Use of Hearing Aids OT- Vision Assessment Visual Acuity Glasses All The Time Visual Attentiveness WFL Occular Pursuits WFL Visual Convergence WFL M7 OT- IP Mobility and Balance Start: 10/09/23 14:16 Freq: Status: Active Protocol: Document 10/09/23 16:34 [facility] (Rec: 10/09/23 16:41 [facility] [id number]) OT- Bed Mobility Assessment Rolling Level of Assistance Standby Assistance,Bedrails OT-Transfer Assessment Comments Mobility Comments Pt will benefit from a bed rail to assist. M8 OT- IP Objective Assessments Start: 10/09/23 14:16 Freq: Status: Active Protocol: Document 10/09/23 14:16 [facility] (Rec: 10/09/23 14:33 [facility] [id number]) OT Gross Range of Motion Upper Extremity Range of Motion Assessment Within Functional Limits M9 OT- IP Assessment and Plan Start: 10/09/23 14:16 Freq: Status: Active Protocol: Document 10/09/23 16:34 [facility] (Rec: 10/09/23 16:41 [facility] [id number]) OT Summary Assessment and Plan Potential Rehabilitation Potential Good Analytic Complexity at Evaluation Low Summary OT Impairments Pain,Balance,Functional Cognition,Functional Mobility, Dressing,Toileting,Bathing, Toilet Transfers,Shower Transfers Progress Towards Goals Slow Progress due to Pain,Slow Progress due to Cognition Assessment Summary Pt having more pain this PM able to touch base with his who feels that she is unable to provide enough assist for the pt especially for the steps. Pt still needing more vc for follow his back precautions and would benefit from skilled rehab to practice and also become more independent with all his needs prior to going home. Therefore pt to go to skilled rehab when medically stable. Able to let case management know, but pt's case mgr for the day already gone for the day. Goals Grooming Goal Independent Dressing Goal Independent,Long Handled Shoe Horn,White Spooler,Sock Aid Toileting Goal Independent Bathing Goal Standby Assistance Toilet Transfer Goal Independent Shower Transfer Goal Standby Assistance Patient/Caregiver Education Goal Demonstrate Post-Op Precautions Days to Meet Goals 10 Frequency of Treatment Frequency Of Treatment Twice a Day Treatment Plan OT Treatment Plan ADL Training,Functional Mobility,Patient/Family Education,Discharge Planning Discharge Recommendations OT Discharge Recommendations SNF Rehab Home Equipment Needs BSC?, facetor, sock aid Transportation Needs at Discharge Wheelchair/Cabulance
[2023-10-09] MEDS: SENNOSIDES 8.6 MG TABLET 17.2 MG PO (21:01)
[2023-10-09] MEDS: ATORVASTATIN 20 MG TABLET 80 MG PO (21:01)
[2023-10-09 22:17] VITALS: BP 134/71; PULSE 72; RESP 17; TEMP 37.2; O2SAT 96
[2023-10-10] MEDS: OXYCODONE IR 10 MG TABLET PO ×3 (00:54→14:53)
[2023-10-10] MEDS: polyethylene glycoL 3350 17 GM POWD.PACK PO (06:03)
--- NOTE | 2023-10-10 06:35 | PM.PNPO.1 ---
Subjective Subjective Date Patient Seen: 10/10/23 Time Patient Seen: 06:35 Interval history: Saray is lying in bed comfortably on my visit this morning. C/o back pain and muscle spasm; denies leg pain. Is frustrated by continued pain and has been taking oxycodone 10mg regularly since surgery. It does not appear as though he has received IV hydromorphone. He would like to be able to taper oxycodone d/t side effects, including constipation. In terms of disposition, he would like to go to SNF for a few days prior to going home. Exam Vital Signs (past 8 hours): Fraction of Inspired Oxygen 28 SaO2/FiO2 Ratio 335 Oxygen Delivery Method Room Air Oxygen Flow Rate 0 Narrative Exam Narrative: 5/5 strength in hip flexors, quadriceps, hamstrings, DF, PF, EHL bilaterally. Sensation to light touch intact throughout BLE, calves soft and compressible. Dressing placed intraoperatively is CDI. 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) AAA (abdominal aortic aneurysm) Vocal cord granuloma CELI on CPAP Hypercholesteremia HTN (hypertension) A-fib Surgical History (Updated 10/10/23 @ 06:39 by Emili Burgess PA-C) Hx of appendectomy (1970) Hx of bilateral cataract extraction History of surgical procedure (08/30/21) Hx of heart artery stent (07/2013) S/P TKR (total knee replacement) Social History household members: spouse Smoking Status: Former smoker alcohol intake: current Assessment & Plan Post-op Assessment and plan (1) S/P lumbar fusion: Assessment and Plan narrative: 1) Will add cyclobenzaprine for pain control in the hopes he can wean down on oxycodone. We discussed that he can have 5-10 mg of oxycodone as frequently as q 3 hrs, and if he would like to start weaning, he can start asking for the lower dose. The same applies to cyclobenzaprine - 5-10 mg q 8 hrs PRN. 2) CM to discuss SNF options w/ pt today. Continue work w/ PT. 3) SCDs for VTE prophylaxis. (2) Chronic a-fib: Assessment and Plan narrative: H/o paroxysmal a fib, chronically anticoagulated w/ Xarelto. Based on op report, very little blood lost during surgery. Can likely resume Xarelto today; will confirm with Dr Toledo prior to ordering. Postoperative Procedures: Procedures Operation Date: 10/08/23 09:15 Actual Procedure Side Surgeon p L4-5 TLIF, L5-S1 Right Hemilaminectomy Adilson Toledo MD Postoperative day: 2 Quality VTE Deep Vein Thrombosis/Pulmonary Embolism Present on Admission: No
[2023-10-10 08:53] VITALS: BP 155/77; RESP 16; O2SAT 92
[2023-10-10] MEDS: SOTALOL 80 MG TABLET 120 MG PO ×2 (09:09→21:25)
[2023-10-10] MEDS: OXYCODONE IR 5 MG TABLET PO ×2 (09:09→21:24)
[2023-10-10] MEDS: RIVAROXABAN 10 MG TABLET 20 MG PO (09:09)
[2023-10-10] MEDS: MAGNESIUM HYDROXIDE 30 ML UDC PO (09:09)
[2023-10-10] MEDS: allopurinoL 100 MG TABLET 300 MG PO (09:10)
[2023-10-10 09:11] VITALS: BP 155/77
[2023-10-10] MEDS: LOSARTAN 50 MG TABLET 100 MG PO (09:11)
[2023-10-10] MEDS: CYCLOBENZAPRINE 10 MG TABLET PO (09:11)
[2023-10-10] MEDS: DOCUSATE 100 MG CAPSULE PO ×2 (09:11→21:25)
[2023-10-10] MEDS: VIT C/E/ZN/COPPR/LUTEIN/ZEAXAN CAPSULE 1 CAP PO ×2 (09:11→21:25)
[2023-10-10] MEDS: ACETAMINOPHEN 325 MG TABLET 650 MG PO (09:12)
[2023-10-10] MEDS: AMLODIPINE 5 MG TABLET 2.5 MG PO ×2 (09:12→21:26)
[2023-10-10] MEDS: SPIRONOLACTONE 25 MG TABLET PO (09:12)
--- NOTE | 2023-10-10 09:30 | PT.IPTN ---
Current Diagnoses Chronic atrial fibrillation, unspecified (10/08/23) Spondylolisthesis, lumbar region (10/08/23) Spinal stenosis, lumbar region with neurogenic claudication (10/08/23) Arthrodesis status (10/08/23) Surgery Performed Operation Date: 10/08/23 09:15 Actual Procedures p L4-5 TLIF, L5-S1 Right Hemilaminectomy - Adilson Toledo MD Physical Therapy Treatment Note M2 PT-IP Current Condition Start: 10/09/23 11:39 Freq: NEEDED Status: Active Protocol: Document 10/09/23 10:00 AB (Rec: 10/09/23 11:55 AB [id number]) Physical Therapy Current Condition Current Condition Evaluation Date 10/09/23 Treatment Diagnosis s/p L4-5 TLIF; L5S1 R hemilaminectomy; difficulty in walkcing Onset Date 10/08/23 M3 PT-IP Subjective Start: 10/09/23 11:39 Freq: NEEDED Status: Active Protocol: Document 10/10/23 09:30 AB (Rec: 10/10/23 10:34 AB [id number]) Subjective Physical Therapy Visit Type Type Treatment Note Visit Start Time 09:30 Visit Stop Time 10:05 Number of CUSTOMER LIAISON Visits 0 Physical Therapy Visit Comments Patient Comments pt is agreeable to do PT Therapy Pain Assessment Pain When Pain Assessed At Rest Pain Present Pain Present Pain Reported Location Back Intensity 4 Scale Used Numeric (0 - 10) Pain Management Techniques Distraction,Modification of Treatment,Re-positioning, Timing of Activity with Medications M4 PT-IP Mobility and Gait Start: 10/09/23 11:39 Freq: NEEDED Status: Active Protocol: Document 10/10/23 09:30 AB (Rec: 10/10/23 10:34 AB [id number]) PT-Bed Mobility Assessment Rolling Type of Rolling Log Rolling Level of Assist Standby Assistance Supine to Sit Supine to Sit Standby Assistance Sit to Supine Sit to Supine Standby Assistance PT-Transfer Assessment Sit to and From Stand Sit to and from Stand Contact Guard Assistance,1 Person Assistance,Use of Upper Extremities Equipment Transfer Assistive Device Gait Belt,Front Wheeled Walker Orthotic/Prosthetic Devices or Brace: No Transfers Transfer Destination Bed,Chair Transfer Technique ambulated Transfer Ability Level of Assist Standby Assistance,Contact Guard Assistance,1 Person Assistance,Use of Upper Extremities Comments Mobility Comments pt sitting on the chair and spouse in room. caregiver training conducted. spouse was able to put safety belt on pt . assisted pt with sit to stand CGA and ambulated with pt using FWW SBA. pt completed ~ 100 ft of ambulation. pt completed up/down steps using L rail ascending + SPC with spouse assisting CGA. assisted pt back to the room. pt ambulated from the w/c to EOB using FWW SBA. pt completed sit to supine SBA. completed supine to sit SBA with min cues provided for positioning/techniques. pt completed sit to stand from the EOB CGA and step transfer back to chair using fWW SBA. positioned pt on the chair. call light and table placed within reach. pt and spouse without further concerns. pt plans to still go to SNF for strengthening and improving mobility independence. Gait Assessment Gait Gait Assistance Required: Standby Assistance,Contact Guard Assist Distance (Feet) 100 Able to Maintain Weight Bearing Status Yes During Gait Assistive Devices Assistive Device Gait Belt,Front Wheeled Walker Orthotic/Prosthetic Devices or Brace: No Gait Deviations General Gait Pattern Decreased Stride Length, Decreased Feet Clearance Factors Limiting Gait Function Factors Limiting Gait Function Decreased Activity Tolerance, Decreased Strength,Difficulty Following Directions,Limited Range of Motion,Pain,Poor Balance,Poor Safety Awareness Stair Climbing Assessment Evaluation Level of Assist On Stairs Contact Guard Assistance,2 Person Assistance Devices Stair Climbing Assistive Devices Straight Cane,Front Wheel Walker Technique/Endurance Stair Climbing Direction Ascend and Descend Stair Climbing Technique Step to Step Number of Steps Climbed 3 Stair Climbing Set # Repetitions (reps) 1 M5 PT-IP Objective Assessments Start: 10/09/23 11:39 Freq: NEEDED Status: Active Protocol: Document 10/09/23 10:00 AB (Rec: 10/09/23 11:55 AB [id number]) Orientation Orientation/Cognition Level of Alertness Alert Orientation Name,Place,Situation Language Function Ability Hard of Hearing Safety Awareness Decreased Safety Awareness Memory Description Short Term Impaired Gross Range of Motion Lower Extremity ROM Assessment Within Functional Limits Strength Lower Extremity Strength Assessment Right Impaired Ankle 3+/5 Coordination Assessment Gross Coordination Gross Coordination WNL Sensation Assessment Sensation Gross Sensation Right LE Impaired,Left LE Impaired Sensation Description Numbness Comments Sensation Comments BLE: feet neuropathy Muscle Tone Muscle Tone WNL Yes M6 PT-IP Treatment Start: 10/09/23 11:39 Freq: NEEDED Status: Active Protocol: Document 10/10/23 09:30 (Rec: 10/10/23 10:34 [id number]) Physical Therapy Treatment Education Education Provided Safety M7 PT-IP Assessment and Plan Start: 10/09/23 11:39 Freq: NEEDED Status: Active Protocol: Document 10/10/23 09:30 (Rec: 10/10/23 10:34 [id number]) PT Summary Assessment and Plan Potential Rehabilitation Potential Good Summary Impairments Pain,ROM,Strength,Balance, Coordination,Sensation,Tone, Cognition,Bed Mobility, Transfers,Gait,Activity Tolerance Progress Towards Goals Progressing Toward Goals Assessment Summary pt progressing well with mobility. caregiver training conducted today and spouse was able to assist. spouse continues to c/o arm soreness and still worried about pt going home. pt requiring SBA to CGA with mobility using FWW . pt stated that he still plans to go to SNF. Goals Bed Mobility Goal Independent Transfer Goal Independent,Front Wheeled Walker Gait Goal Independent,Front Wheel Walker Gait Distance 200 Other Goals up/down 3 steps L rail ascending SBA improve transfers and ambulation using LRAD 300 ft SBA Days to Meet Goals 10 Frequency of Treatment Frequency Of Treatment Twice a Day Treatment Plan Physical Therapy Treatment Plan Bed Mobility Training,Transfer Training,Gait Training, Therapeutic Exercise,Balance Retraining,Post Op Education, Discharge Planning,Hot or Cold Pack,Neuromuscular Re-ed, Coordination Retraining,Manual Therapy Precautions Lumbar Precautions Log Roll,No Twisting,Limit Bending,Lifting Restriction of 10 lbs,Gait Belt above Incisional Area Recommendations To Nursing Amount of Assist Needed 1 Person Assist Discharge Recommendations PT Discharge Recommendations Home with 11/12 Assist Available,Home Health,SNF Rehab,Home vs SNF Transportation Needs at Discharge Private Vehicle,Wheelchair/ Cabulance
--- NOTE | 2023-10-10 10:29 | CM.DPC ---
DCP Cont. Reviewed EMR and team rounds for status updates. Received a call from [facility] re: referral, they can accept, and will transport pt tomorrow at 1:00pm. Met with pt and updated him on plan. Will fax PASSAR and d/c clinicals to [facility] tomorrow once available.
--- NOTE | 2023-10-10 11:12 | OT.IP.TRT ---
Current Diagnoses Chronic atrial fibrillation, unspecified (10/08/23) Spondylolisthesis, lumbar region (10/08/23) Spinal stenosis, lumbar region with neurogenic claudication (10/08/23) Arthrodesis status (10/08/23) Surgery Performed Operation Date: 10/08/23 09:15 Actual Procedures p L4-5 TLIF, L5-S1 Right Hemilaminectomy - Adilson Toledo MD Occupational Therapy Treatment Note M2 OT-IP Current Condition Start: 10/09/23 14:16 Freq: Status: Active Protocol: Document 10/09/23 14:16 [facility] (Rec: 10/09/23 14:33 [facility] [id number]) Occupational Therapy Current Condition Current Condition Evaluation Date 10/09/23 Treatment Diagnosis S/P L4-5 TLIF, L5-S1 R hemilaminectomy Diagnosis Onset Date 10/08/23 Post Operative Precautions Lumbar Precautions Log Roll,No Twisting,Limit Bending,Lifting Restriction of 10 lbs,Gait Belt above Incisional Area Weight Bearing Status Weight Bearing Status Weight Bear as Tolerated M3 OT- IP Subjective and Pain Start: 10/09/23 14:16 Freq: Status: Active Protocol: Document 10/10/23 11:32 [facility] (Rec: 10/10/23 11:38 [facility] [id number]) OT- Subjective Occupational Therapy Visit Type Type Treatment Note Visit Start Time 11:22 Visit Stop Time 11:30 Occupational Therapy Visit Comments Patient Comments Pt wanting to stay in bed and states open to doing showering tomorrow. Able to talk to pt of his precautions. Patient/Caregiver Goals To go to rehab. OT Pain Assessment Pain When Pain Assessed During Mobility Pain Present Pain Present Pain Reported M4 OT- IP ADL's Start: 10/09/23 14:16 Freq: Status: Active Protocol: Document 10/10/23 11:32 [facility] (Rec: 10/10/23 11:38 [facility] [id number]) OT ADL-Oral Care Comments Oral Care Comments Pt states was able to spit into a cup to follow his back precautions earlier. OT ADL-Toileting Comments OT Toileting Comments Pt has been constipated per pt , nursing aware. Suggested that pt try to massage his abdomen. OT ADL-Bathing Comments OT Bathing Comments Pt states to shower tomorrow. M5 OT- IP IADL's Start: 10/09/23 14:16 Freq: Status: Active Protocol: Document 10/09/23 14:16 [facility] (Rec: 10/09/23 14:33 [facility] [id number]) OT-Instrumental Activities of Daily Living Deficits IADL Deficits Identified Deficits Home Safety Awareness Awareness of Need for Assistance at Home Good Awareness Ability to Problem Solve Emergency Able to Problem Solve Situations Home Safety Comments Pt's to be home to proved supervisions and some assist. Medication Management Medication Management Comments Pt's able to assist. Money Management Money Management Caregiver Provides Assistance Meal Preparation Meal Preparation Caregiver Provides Assist Court Registry Officer Court Registry Officer Caregiver Provides Assist M6 OT- IP Functional Cognition Start: 10/09/23 14:16 Freq: Status: Active Protocol: Document 10/10/23 11:32 [facility] (Rec: 10/10/23 11:38 [facility] [id number]) Cognitive Factors Limiting Selfcare Function Cognitive Ability Safety Awareness Decreased Recall of Precautions Cognitive Comments Cognitive Assessment Comments Pt not able to recall all his precautions and needing to go over the precautions with him again and how it pertains to his ADL and mobility needs. M7 OT- IP Mobility and Balance Start: 10/09/23 14:16 Freq: Status: Active Protocol: Document 10/09/23 16:34 [facility] (Rec: 10/09/23 16:41 [facility] [id number]) OT- Bed Mobility Assessment Rolling Level of Assistance Standby Assistance,Bedrails OT-Transfer Assessment Comments Mobility Comments Pt will benefit from a bed rail to assist. M8 OT- IP Objective Assessments Start: 10/09/23 14:16 Freq: Status: Active Protocol: Document 10/09/23 14:16 [facility] (Rec: 10/09/23 14:33 [facility] [id number]) OT Gross Range of Motion Upper Extremity Range of Motion Assessment Within Functional Limits M9 OT- IP Assessment and Plan Start: 10/09/23 14:16 Freq: Status: Active Protocol: Document 10/10/23 11:32 [facility] (Rec: 10/10/23 11:38 [facility] [id number]) OT Summary Assessment and Plan Potential Rehabilitation Potential Good Analytic Complexity at Evaluation Low Summary OT Impairments Pain,Balance,Functional Cognition,Functional Mobility, Dressing,Toileting,Bathing, Toilet Transfers,Shower Transfers Progress Towards Goals Slow Progress due to Pain,Slow Progress due to Cognition Assessment Summary Pt just wanting to rest at this time, but able to go over back precautions again as pt is forgetful. Pt looking to go to skilled rehab tomorrow. Pt agreed to do showering tomorrow. Goals Grooming Goal Independent Dressing Goal Independent,Long Handled Shoe Horn,Coutierier,Sock Aid Toileting Goal Independent Bathing Goal Standby Assistance Toilet Transfer Goal Independent Shower Transfer Goal Standby Assistance Patient/Caregiver Education Goal Demonstrate Post-Op Precautions Days to Meet Goals 10 Frequency of Treatment Frequency Of Treatment Once a Day Treatment Plan OT Treatment Plan ADL Training,Functional Mobility,Patient/Family Education,Discharge Planning Other Treatment Recommendations and Next Shower Treatment Focus Discharge Recommendations OT Discharge Recommendations SNF Rehab Transportation Needs at Discharge Wheelchair/Cabulance
--- NOTE | 2023-10-10 14:23 | PT.IPTN ---
Current Diagnoses Chronic atrial fibrillation, unspecified (10/08/23) Spondylolisthesis, lumbar region (10/08/23) Spinal stenosis, lumbar region with neurogenic claudication (10/08/23) Arthrodesis status (10/08/23) Surgery Performed Operation Date: 10/08/23 09:15 Actual Procedures p L4-5 TLIF, L5-S1 Right Hemilaminectomy - Adilson Toledo MD Physical Therapy Treatment Note M2 PT-IP Current Condition Start: 10/09/23 11:39 Freq: NEEDED Status: Active Protocol: Document 10/09/23 10:00 AB (Rec: 10/09/23 11:55 AB [id number]) Physical Therapy Current Condition Current Condition Evaluation Date 10/09/23 Treatment Diagnosis s/p L4-5 TLIF; L5S1 R hemilaminectomy; difficulty in walkcing Onset Date 10/08/23 M3 PT-IP Subjective Start: 10/09/23 11:39 Freq: NEEDED Status: Active Protocol: Document 10/10/23 14:42 TS (Rec: 10/10/23 14:47 TS [id number]) Subjective Physical Therapy Visit Type Type Treatment Note Visit Start Time 14:23 Visit Stop Time 14:43 Number of LIFE CLAIMS EXAMINER Visits 1 Physical Therapy Visit Comments Patient Comments Pt found on the toilet, is agreeable to PT. Therapy Pain Assessment Pain When Pain Assessed During Mobility M4 PT-IP Mobility and Gait Start: 10/09/23 11:39 Freq: NEEDED Status: Active Protocol: Document 10/10/23 14:42 TS (Rec: 10/10/23 14:47 TS [id number]) PT-Transfer Assessment Sit to and From Stand Sit to and from Stand Standby Assistance Equipment Transfer Assistive Device Gait Belt,Front Wheeled Walker Orthotic/Prosthetic Devices or Brace: No Comments Mobility Comments STS from toilet SBA with FWW. Pt ambulated ~200'SBA with FWW and emerging step thru gait. PT ambulated bakc to room, sat in chair. Pt requested pain meds, RN was notified. Gait Assessment Gait Gait Assistance Required: Standby Assistance Distance (Feet) 200 Able to Maintain Weight Bearing Status Yes During Gait Assistive Devices Assistive Device Gait Belt,Front Wheeled Walker Orthotic/Prosthetic Devices or Brace: No Gait Deviations General Gait Pattern Decreased Stride Length, Decreased Feet Clearance Factors Limiting Gait Function Factors Limiting Gait Function Decreased Activity Tolerance, Decreased Strength,Difficulty Following Directions,Limited Range of Motion,Pain,Poor Balance,Poor Safety Awareness PT-Balance Assessment Sitting Balance and Reactions Static Sitting Balance Ability Good Dynamic Sitting Balance Ability Good Standing Balance and Reactions Static Standing Balance Ability Good Dynamic Standing Balance Ability Good M5 PT-IP Objective Assessments Start: 10/09/23 11:39 Freq: NEEDED Status: Active Protocol: Document 10/09/23 10:00 AB (Rec: 10/09/23 11:55 AB [id number]) Orientation Orientation/Cognition Level of Alertness Alert Orientation Name,Place,Situation Language Function Ability Hard of Hearing Safety Awareness Decreased Safety Awareness Memory Description Short Term Impaired Gross Range of Motion Lower Extremity ROM Assessment Within Functional Limits Strength Lower Extremity Strength Assessment Right Impaired Ankle 3+/5 Coordination Assessment Gross Coordination Gross Coordination WNL Sensation Assessment Sensation Gross Sensation Right LE Impaired,Left LE Impaired Sensation Description Numbness Comments Sensation Comments BLE: feet neuropathy Muscle Tone Muscle Tone WNL Yes M6 PT-IP Treatment Start: 10/09/23 11:39 Freq: NEEDED Status: Active Protocol: Document 10/10/23 14:42 TS (Rec: 10/10/23 14:47 TS [id number]) Physical Therapy Treatment Education Education Provided Safety M7 PT-IP Assessment and Plan Start: 10/09/23 11:39 Freq: NEEDED Status: Active Protocol: Document 10/10/23 14:42 TS (Rec: 10/10/23 14:47 TS [id number]) PT Summary Assessment and Plan Potential Rehabilitation Potential Good Summary Impairments Pain,ROM,Strength,Balance, Coordination,Sensation,Tone, Cognition,Bed Mobility, Transfers,Gait,Activity Tolerance Progress Towards Goals Progressing Toward Goals Assessment Summary Deny continues to make progress with his mobility. He is SBA for STS from low surfaces with use of FWW. He progressed his gait to ~200' SBA with FWW. He demonstrates good awareness of his spinal precautions and recalled 3/3. PT is recommending home vs SNF . Goals Bed Mobility Goal Independent Transfer Goal Independent,Front Wheeled Walker Gait Goal Independent,Front Wheel Walker Gait Distance 200 Other Goals up/down 3 steps L rail ascending SBA improve transfers and ambulation using LRAD 300 ft SBA Days to Meet Goals 10 Frequency of Treatment Frequency Of Treatment Twice a Day Treatment Plan Physical Therapy Treatment Plan Bed Mobility Training,Transfer Training,Gait Training, Therapeutic Exercise,Balance Retraining,Post Op Education, Discharge Planning,Hot or Cold Pack,Neuromuscular Re-ed, Coordination Retraining,Manual Therapy Precautions Lumbar Precautions Log Roll,No Twisting,Limit Bending,Lifting Restriction of 10 lbs,Gait Belt above Incisional Area Recommendations To Nursing Amount of Assist Needed 1 Person Assist Discharge Recommendations PT Discharge Recommendations Home with 24/ Assist Available,Home Health,SNF Rehab,Home vs SNF Transportation Needs at Discharge Private Vehicle,Wheelchair/ Cabulance
[2023-10-10 20:13] VITALS: BP 115/50; PULSE 75; RESP 19; TEMP 37.3; O2SAT 94
[2023-10-10] MEDS: ATORVASTATIN 20 MG TABLET 80 MG PO (21:25)
[2023-10-10] MEDS: SENNOSIDES 8.6 MG TABLET 17.2 MG PO (21:25)
[2023-10-11] MEDS: OXYCODONE IR 5 MG TABLET PO ×2 (01:04→11:59)
--- NOTE | 2023-10-11 06:59 | PM.DS.1 ---
History of Present Illness History of Present Illness Date Patient Seen: 10/11/23 Time Patient Seen: 06:59 Chief complaint: Translaminar Interbody Fusion/Laminotomy Narrative: Operative Date/Time/Diagnoses Date of procedure: 10/08/23 Time of procedure: 10:00 Pre-op diagnosis: 1. L4-5, L5-S1 spinal stenosis 2. L4-5 anterolisthesis Post-op diagnosis: same Procedure & Clinicians Procedure: 1. L4-5 Postero-lateral and posterior interbody fusion 2. L4-5 interbody cage placement. 3. L4-5 decompressive laminectomy with bilateral facetecomies 4. L4-5 Posterior non-segmental instrumentation 5. L5-S1 right hemilaminectomy 6. [place] of bone marrow from iliac crest 7. Utilization of microsurgical technique and operating microscope Same procedure as scheduled: Yes Indications: Patient has been having chronic back pain and worsening lumbar radiculopathy and symptoms of neurogenic claudication. Patient was found to have severe spinal stenosis L4-5 with anterolisthesis and lateral recess stenosis at L5-S1 correlating with his symptoms. Patient failed multiple conservative management with worsening pain weakness and numbness in his lower extremity. Patient has been having difficulty performing activity of daily living. After discussing risks benefits of treatment options, patient elected proceed with surgery. Surgeon: Adilson Toledo Power Shovel Operator Helper: Anna Marie Ron Anesthesia Type: General Operative Notes Closure Type: primary Prosthetic devices, grafts, tissues, transplants, or devices: GLobus revolve screws, sable cage Estimated Blood Loss (mL): 100 Blood products transfused: none Discharge Providers Provider Date of admission: 10/08/23 07:42 Discharge Date: 10/11/23 Primary care physician: Jesus Koroma MD Consults: 10/08/23 14:20 Consult to Occupational Therapy Evaluate & Treat Comment: Physician Instructions: Evaluate and treat Consult to Physical Therapy Evaluate & Treat Comment: Physician Instructions: Evaluate and Treat Discharge provider: Emili Burgess PA-C Summary Hospital Course Discharge Diagnosis: L4-5, L5-S1 spinal stenosis, L4-5 anterolisthesis; s/p L4-5 lumbar fusion and L5-S1 right hemilaminectomy Hospital Course: Mr So's hospital course was unremarkable. He worked w/ PT during his stay, and due to his need for continued assistance, it was felt he should have further rehab at a SNF prior to going home. On the morning of POD# 3, he was feeling well and ready for transfer. He was eating and voiding without difficulty and his pain was well-controlled with PO medication. Exam Vital Signs (past 8 hours): Fraction of Inspired Oxygen 28 SaO2/FiO2 Ratio 335 Oxygen Delivery Method Room Air Oxygen Flow Rate 0 Narrative Exam Narrative: 5/5 strength in hip flexors, quadriceps, hamstrings, DF, PF, EHL bilaterally. Sensation to light touch intact throughout BLE, calves soft and compressible. Low back dressing placed intraoperatively is CDI. SCDs on but not functioning. 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) AAA (abdominal aortic aneurysm) Vocal cord granuloma CELI on CPAP Hypercholesteremia HTN (hypertension) A-fib Surgical History (Updated 10/10/23 @ 06:39 by Emili Burgess PA-C) Hx of appendectomy (1970) Hx of bilateral cataract extraction History of surgical procedure (08/30/21) Hx of heart artery stent (07/2013) S/P TKR (total knee replacement) Social History household members: spouse Smoking Status: Former smoker alcohol intake: current Discharge Assessment & Plan Assessment and Plan Assessment: L4-5, L5-S1 spinal stenosis, L4-5 anterolisthesis; s/p L4-5 lumbar fusion and L5-S1 right hemilaminectomy Plan of Treatment: D/C to SNF. Xarelto restarted yesterday for VTE prophylaxis. Continue multimodal pain control, f/u in 2 weeks as scheduled. Discharge Plan Discharge Plan Patient Disposition: SNF Transfer to: [facility] and [facility] Discharge orders & Medications Prescriptions: New docusate sodium 100 mg Capsule 100 mg PO BID PRN (Reason: constipation) Qty: 60 1RF oxycodone 5 mg Tablet 5 mg PO Q4-6H PRN (Reason: Pain, Moderate (4-6)) Qty: 60 0RF Rx Instructions: May take 5-10 mg (1-2 tabs) q 4-6 hrs PRN moderate to severe pain cyclobenzaprine 10 mg Tablet 5 mg PO Q8HR PRN (Reason: Muscle Spasm) Qty: 60 0RF Rx Instructions: May take 5-10 mg (1-2 tabs) q 8 hrs prn muscle spasm. Continued allopurinol 300 mg tablet 300 mg PO DAILY Qty: 90 3RF amlodipine 2.5 mg tablet 2.5 mg PO BID Qty: 180 3RF losartan 100 mg tablet 100 mg PO DAILY Qty: 90 3RF Xarelto 20 mg tablet 20 mg PO DAILY Qty: 90 3RF rosuvastatin 40 mg tablet 40 mg PO DAILY Qty: 90 3RF sotalol 120 mg tablet 120 mg PO BID Qty: 180 3RF spironolactone 25 mg tablet 25 mg PO DAILY Qty: 90 3RF PreserVision AREDS-2 250-90-40-1 mg Capsule 1 tab PO BID (DME) Four point walker See Rx Instructions .Route .MEDSUPPLY Qty: 1 0RF Rx Instructions: As directed Follow up/Referrals: Adilson Toledo MD [Physician] - (Follow up at [facility] as scheduled in 2 weeks. ) Jesus Koroma MD [Primary Care Provider] - Diet/Activity/Treatments Diet: Diet as Tolerated Activity: No deep bending or twisting at the waist. No lifting more than 10 pounds. Skin/Wound/Dressing Care Report to your healthcare provider any signs of infection, such as:: chills, fever, night sweats, unusual drainage and unusual redness Dressing: May shower; keep dressing as dry as possible. If dressing becomes wet or dirty, may remove and replace with clean, dry gauze. No bathing or otherwise soaking incisions. Do not apply any creams, lotions, or ointments to incisions. [facility] Reason for rehabilitation: Post-operative therapy Rehab type: Physical therapy and Occupational therapy Visit Report/Discharge Packet Instructions: DI for Transforaminal Lumbar Interbody Fusion, DI for Prescription Opioid Use Stand Alone Forms: Patient Portal/API, Surgery Discharge Discharge Data Primary Care Provider: Jesus Koroma Quality VTE Deep Vein Thrombosis/Pulmonary Embolism Present on Admission: No
[2023-10-11 07:00] VITALS: BP 129/62; PULSE 86; RESP 16; TEMP 37; O2SAT 95
--- NOTE | 2023-10-11 08:53 | PT.IPTN ---
Current Diagnoses Chronic atrial fibrillation, unspecified (10/08/23) Spondylolisthesis, lumbar region (10/08/23) Spinal stenosis, lumbar region with neurogenic claudication (10/08/23) Arthrodesis status (10/08/23) Surgery Performed Operation Date: 10/08/23 09:15 Actual Procedures p L4-5 TLIF, L5-S1 Right Hemilaminectomy - Adilson Toledo MD Physical Therapy Treatment Note M2 PT-IP Current Condition Start: 10/09/23 11:39 Freq: NEEDED Status: Active Protocol: Document 10/09/23 10:00 AB (Rec: 10/09/23 11:55 AB [id number]) Physical Therapy Current Condition Current Condition Evaluation Date 10/09/23 Treatment Diagnosis s/p L4-5 TLIF; L5S1 R hemilaminectomy; difficulty in walkcing Onset Date 10/08/23 M3 PT-IP Subjective Start: 10/09/23 11:39 Freq: NEEDED Status: Active Protocol: Document 10/11/23 09:26 TS (Rec: 10/11/23 09:33 TS [id number]) Subjective Physical Therapy Visit Type Type Treatment Note Visit Start Time 08:53 Visit Stop Time 09:25 Number of ORE DRESSING ENGINEER Visits 2 Physical Therapy Visit Comments Patient Comments Pt found resting in bed, reports pain is 3/10, pt is agreeable to PT. Therapy Pain Assessment Pain When Pain Assessed During Mobility Pain Present Pain Present Allowed to Sleep Location Back Intensity 3 Scale Used Numeric (0 - 10) Description Aching Pain Management Techniques Distraction,Modification of Treatment,Re-positioning, Timing of Activity with Medications M4 PT-IP Mobility and Gait Start: 10/09/23 11:39 Freq: NEEDED Status: Active Protocol: Document 10/11/23 09:26 TS (Rec: 10/11/23 09:33 TS [id number]) PT-Bed Mobility Assessment Rolling Type of Rolling Log Rolling Level of Assist Standby Assistance Supine to Sit Supine to Sit Standby Assistance Sit to Supine Sit to Supine Standby Assistance Scooting Scooting to Edge of Bed Standby Assistance PT-Transfer Assessment Sit to and From Stand Sit to and from Stand Standby Assistance Equipment Transfer Assistive Device Gait Belt,Front Wheeled Walker Orthotic/Prosthetic Devices or Brace: No Comments Mobility Comments Logroll to L side SBA with use of handrails. Supine to sit SBA with BUE support and from flat bed. STS from bed with FWW SBA, pt is slow to stand. He ambulated ~10' to EOb, nursing in room to dispsense meds. Pt ambulated another ~ 200' SBA with FWW and step thru gait. He performed steps x3 with single rail and use of cane CGA, pt had no buckling or LOB. Pt ambulated back to room, sit to supine into bed SBA. Pt was left in bed, all needs met. Gait Assessment Gait Gait Assistance Required: Standby Assistance Distance (Feet) 210 Able to Maintain Weight Bearing Status Yes During Gait Assistive Devices Assistive Device Gait Belt,Front Wheeled Walker Orthotic/Prosthetic Devices or Brace: No Gait Deviations General Gait Pattern Decreased Stride Length, Decreased Feet Clearance Factors Limiting Gait Function Factors Limiting Gait Function Decreased Activity Tolerance, Decreased Strength,Difficulty Following Directions,Limited Range of Motion,Pain,Poor Balance,Poor Safety Awareness Comments Gait Comments See mobility comments Stair Climbing Assessment Evaluation Level of Assist On Stairs Contact Guard Assistance,1 Person Assistance Devices Stair Climbing Assistive Devices Straight Cane,Front Wheel Walker Technique/Endurance Stair Climbing Direction Ascend and Descend Stair Climbing Technique Step to Step Number of Steps Climbed 3 Stair Climbing Set # Repetitions (reps) 1 PT-Balance Assessment Sitting Balance and Reactions Static Sitting Balance Ability Good Dynamic Sitting Balance Ability Good Standing Balance and Reactions Static Standing Balance Ability Good Dynamic Standing Balance Ability Good Device Used FWW M5 PT-IP Objective Assessments Start: 10/09/23 11:39 Freq: NEEDED Status: Active Protocol: Document 10/09/23 10:00 AB (Rec: 10/09/23 11:55 AB [id number]) Orientation Orientation/Cognition Level of Alertness Alert Orientation Name,Place,Situation Language Function Ability Hard of Hearing Safety Awareness Decreased Safety Awareness Memory Description Short Term Impaired Gross Range of Motion Lower Extremity ROM Assessment Within Functional Limits Strength Lower Extremity Strength Assessment Right Impaired Ankle 3+/5 Coordination Assessment Gross Coordination Gross Coordination WNL Sensation Assessment Sensation Gross Sensation Right LE Impaired,Left LE Impaired Sensation Description Numbness Comments Sensation Comments BLE: feet neuropathy Muscle Tone Muscle Tone WNL Yes M6 PT-IP Treatment Start: 10/09/23 11:39 Freq: NEEDED Status: Active Protocol: Document 10/11/23 09:26 TS (Rec: 10/11/23 09:33 TS [id number]) Physical Therapy Treatment Education Education Provided Safety M7 PT-IP Assessment and Plan Start: 10/09/23 11:39 Freq: NEEDED Status: Active Protocol: Document 10/11/23 09:26 TS (Rec: 10/11/23 09:33 TS [id number]) PT Summary Assessment and Plan Potential Rehabilitation Potential Good Summary Impairments Pain,ROM,Strength,Balance, Coordination,Sensation,Tone, Cognition,Bed Mobility, Transfers,Gait,Activity Tolerance Progress Towards Goals Progressing Toward Goals Assessment Summary Deny continues to make good progress with his mobility. He is SBA for all bed mobility and demonstrates good carryover of technique. He continues to ambulate ~200'SBA with FWW, pt has some foot drop on RLE. He performed stairs x3 CGA with use of SPC. Pt demonstrates good awareness of precautions with all mobility. PT is recommending Home vs SNF. Goals Bed Mobility Goal Independent Transfer Goal Independent,Front Wheeled Walker Gait Goal Independent,Front Wheel Walker Gait Distance 200 Other Goals up/down 3 steps L rail ascending SBA improve transfers and ambulation using LRAD 300 ft SBA Days to Meet Goals 10 Frequency of Treatment Frequency Of Treatment Twice a Day Treatment Plan Physical Therapy Treatment Plan Bed Mobility Training,Transfer Training,Gait Training, Therapeutic Exercise,Balance Retraining,Post Op Education, Discharge Planning,Hot or Cold Pack,Neuromuscular Re-ed, Coordination Retraining,Manual Therapy Precautions Lumbar Precautions Log Roll,No Twisting,Limit Bending,Lifting Restriction of 10 lbs,Gait Belt above Incisional Area Recommendations To Nursing Amount of Assist Needed Standby Assistance,1 Person Assist Discharge Recommendations PT Discharge Recommendations Home with Assistance,SNF Rehab ,Home vs SNF Transportation Needs at Discharge Private Vehicle,Wheelchair/ Cabulance
[2023-10-11 09:00] VITALS: BP 129/62
[2023-10-11] MEDS: DOCUSATE 100 MG CAPSULE PO (09:00)
[2023-10-11] MEDS: LOSARTAN 50 MG TABLET 100 MG PO (09:00)
[2023-10-11] MEDS: SOTALOL 80 MG TABLET 120 MG PO (09:01)
[2023-10-11] MEDS: RIVAROXABAN 10 MG TABLET 20 MG PO (09:01)
[2023-10-11] MEDS: VIT C/E/ZN/COPPR/LUTEIN/ZEAXAN CAPSULE 1 CAP PO (09:01)
[2023-10-11] MEDS: AMLODIPINE 5 MG TABLET 2.5 MG PO (09:02)
[2023-10-11] MEDS: allopurinoL 100 MG TABLET 300 MG PO (09:04)
[2023-10-11] MEDS: SPIRONOLACTONE 25 MG TABLET PO (09:04)
[2023-10-11] MEDS: polyethylene glycoL 3350 17 GM POWD.PACK PO (09:09)
[2023-10-11] MEDS: MAGNESIUM HYDROXIDE 30 ML UDC PO (09:12)
--- NOTE | 2023-10-11 11:26 | OT.IP.TRT ---
Current Diagnoses Chronic atrial fibrillation, unspecified (10/08/23) Spondylolisthesis, lumbar region (10/08/23) Spinal stenosis, lumbar region with neurogenic claudication (10/08/23) Arthrodesis status (10/08/23) Surgery Performed Operation Date: 10/08/23 09:15 Actual Procedures p L4-5 TLIF, L5-S1 Right Hemilaminectomy - Adilson Toledo MD Occupational Therapy Treatment Note M2 OT-IP Current Condition Start: 10/09/23 14:16 Freq: Status: Active Protocol: Document 10/09/23 14:16 [facility] (Rec: 10/09/23 14:33 [facility] [id number]) Occupational Therapy Current Condition Current Condition Evaluation Date 10/09/23 Treatment Diagnosis S/P L4-5 TLIF, L5-S1 R hemilaminectomy Diagnosis Onset Date 10/08/23 Post Operative Precautions Lumbar Precautions Log Roll,No Twisting,Limit Bending,Lifting Restriction of 10 lbs,Gait Belt above Incisional Area Weight Bearing Status Weight Bearing Status Weight Bear as Tolerated M3 OT- IP Subjective and Pain Start: 10/09/23 14:16 Freq: Status: Active Protocol: Document 10/11/23 10:45 [facility] (Rec: 10/11/23 12:01 [facility] [id number]) OT- Subjective Occupational Therapy Visit Type Type Treatment Note Visit Start Time 10:45 Visit Stop Time 11:26 Occupational Therapy Visit Comments Patient Comments Pt wanting to shower. Pt states still constipated and nursing aware. Patient/Caregiver Goals To get better. OT Pain Assessment Pain When Pain Assessed During Mobility Pain Present Pain Present Pain Reported M4 OT- IP ADL's Start: 10/09/23 14:16 Freq: Status: Active Protocol: Document 10/11/23 10:45 [facility] (Rec: 10/11/23 12:01 [facility] [id number]) OT API-Voyl-Ekzmjji General Evaluation Self-Feeding Ability Independent OT ADL-Grooming General Evaluation Grooming Ability Standby Assistance OT ADL-Dressing General Eval Lower Body Dressing Ability Moderate Assistance Areas Needing Assistance Underpants/Brief,Socks Comments OT Dressing Comments Able to practice use of LB dressing equipment after shower and will continue to benefit from repetition and practice. OT ADL-Toileting General Evaluation Toileting Ability Standby Assistance Comments OT Toileting Comments Pt able to stand with FWW to urinate over the toilet. OT ADL-Bathing Bathing Type Bathing Type Shower General Evaluation Bathing Ability Moderate Assistance Areas Needing Assistance Wash/Dry Back,Wash/Dry Perineal Area,Wash/Dry Lower Extremities Comments OT Bathing Comments Pty able to use long handled brush to assist for LB showering needs- pt still needing assist for pericare need and his feet. M5 OT- IP IADL's Start: 10/09/23 14:16 Freq: Status: Active Protocol: Document 10/09/23 14:16 [facility] (Rec: 10/09/23 14:33 [facility] [id number]) OT-Instrumental Activities of Daily Living Deficits IADL Deficits Identified Deficits Home Safety Awareness Awareness of Need for Assistance at Home Good Awareness Ability to Problem Solve Emergency Able to Problem Solve Situations Home Safety Comments Pt's to be home to proved supervisions and some assist. Medication Management Medication Management Comments Pt's able to assist. Money Management Money Management Caregiver Provides Assistance Meal Preparation Meal Preparation Caregiver Provides Assist Director Of Manufacturing Operations Director Of Manufacturing Operations Caregiver Provides Assist M6 OT- IP Functional Cognition Start: 10/09/23 14:16 Freq: Status: Active Protocol: Document 10/11/23 10:45 [facility] (Rec: 10/11/23 12:01 [facility] [id number]) Cognitive Factors Limiting Selfcare Function Cognitive Ability Safety Awareness Decreased Recall of Precautions Cognitive Comments Cognitive Assessment Comments Pt still needing reminders to be able to incorporate his back precautions for ADL and mobility needs. At times pt is still a little impulsive- however pt is hard of hearing. Pt needing MAX vc for safety awareness. M7 OT- IP Mobility and Balance Start: 10/09/23 14:16 Freq: Status: Active Protocol: Document 10/11/23 10:45 [facility] (Rec: 10/11/23 12:01 [facility] [id number]) OT- Bed Mobility Assessment Supine to Sit Supine to Sit Assist Standby Assistance OT-Transfer Assessment Sit to and From Stand Sit to and from Stand Standby Assistance,Contact Guard Assistance Transfers Transfer Ability Standby Assistance,Contact Guard Assistance Technique Transfer Destination Bed,Chair,Shower Stall,Toilet Transfer Technique Stand Step Pivot Devices Transfer Assistive Devices Gait Belt,Front Wheeled Walker Comments Mobility Comments CGA for lower surfaces and uneven surfaces fro safety with FWW. VC to hinge at his hinge to stand and reach back with his hands for safety . OT- Balance Assessment Sitting Balance and Reactions Static Sitting Balance Ability Good Dynamic Sitting Balance Ability Good Standing Balance and Reactions Static Standing Balance Ability Good Dynamic Standing Balance Ability Fair M8 OT- IP Objective Assessments Start: 10/09/23 14:16 Freq: Status: Active Protocol: Document 10/09/23 14:16 [facility] (Rec: 10/09/23 14:33 [facility] [id number]) OT Gross Range of Motion Upper Extremity Range of Motion Assessment Within Functional Limits M9 OT- IP Assessment and Plan Start: 10/09/23 14:16 Freq: Status: Active Protocol: Document 10/11/23 10:45 [facility] (Rec: 10/11/23 12:01 [facility] [id number]) OT Summary Assessment and Plan Potential Rehabilitation Potential Good Analytic Complexity at Evaluation Low Summary OT Impairments Pain,Balance,Functional Cognition,Functional Mobility, Dressing,Toileting,Bathing, Toilet Transfers,Shower Transfers Progress Towards Goals Progressing Toward Goals,Slow Progress due to Medical Issues Assessment Summary Pt to go to skilled rehab today. Pt will greatly benefit from continues practice of LB dressing equipment and his back precautions for ADL and mobility needs. Goals Grooming Goal Independent Dressing Goal Independent,Long Handled Shoe Horn,Hydroelectric Operator,Sock Aid Toileting Goal Independent Bathing Goal Standby Assistance Toilet Transfer Goal Independent Shower Transfer Goal Standby Assistance Patient/Caregiver Education Goal Demonstrate Post-Op Precautions Days to Meet Goals 9 Frequency of Treatment Frequency Of Treatment Once a Day Treatment Plan OT Treatment Plan ADL Training,Functional Mobility,Patient/Family Education,Discharge Planning Discharge Recommendations OT Discharge Recommendations SNF Rehab Transportation Needs at Discharge Wheelchair/Cabulance
--- NOTE | 2023-10-11 11:29 | CM.DPC ---
DCP Cont. Reviewed EMR and team rounds for status updates. Pt has been medically cleared for d/c today, [facility] will be transporting him at 1:00pm. No further DCP needs indicated at this time.
--- NOTE | 2023-10-11 11:33 | CM.DPC ---
DCP Cont. Reviewed EMR and team rounds for status updates. Pt has been medically cleared for d/c, he will be transported to [facility] later today at 2:00pm. No further DCP needs are indicated at this time.
--- NOTE | 2023-10-11 13:21 | PC.NURSE ---
Pt A/O SBA in room Dsg to back CDI Pt Med x 1 w/ 5mg oxycodone w/good relief Discharge to [facility], in stable status.
== END 2023-10-11 13:24 | DRG 454 ==
PROVIDERS: Admitting Provider Orthopaedic Surgery Orthopaedic Surgery of the Spine; Family Provider Family Medicine; PCP Family Medicine; Referring Provider Orthopaedic Surgery Orthopaedic Surgery of the Spine; Visit Provider Orthopaedic Surgery Orthopaedic Surgery of the Spine
PROC: 0SG00AJ Fusion of Lumbar Vertebral Joint with Interbody Fusion Device, Posterior Approach, Anterior Column, Open Approach (ICD-10-PCS; principal; 2023-10-08 09:15)
DX: M48.062 Spinal stenosis, lumbar region with neurogenic claudication (principal); I48.20 Chronic atrial fibrillation, unspecified; M43.16 Spondylolisthesis, lumbar region; M21.371 Foot drop, right foot; M48.07 Spinal stenosis, lumbosacral region; M43.17 Spondylolisthesis, lumbosacral region; I10 Essential (primary) hypertension; E78.00 Pure hypercholesterolemia, unspecified; H35.30 Unspecified macular degeneration; Z87.891 Personal history of nicotine dependence; Z79.01 Long term (current) use of anticoagulants
CPT/HCPCS: 72100; 76000; 97116; 97162; 97165; 97530; 97535; C1713; C9290; J0171; J0690; J1100; J1170; J2405; J2704; J2765; J3010; J3410

== ENCOUNTER → 2023-11-28 11:33 | Outpatient (CLI) | payer MEDICARE, OTHER, SELFPAY ==
[2023-10-08 07:47] VITALS: BMI 30.1
[2023-11-28 21:00] LABS: Add Manual Diff / Slide Review NO; Basophils Absolute Auto 100 /uL (0-100); Basophils Percent Auto 0.9 % (0-2); Eosinophils Absolute Auto 200 /uL (0-450); Eosinophils Percent Auto 2.7 % (2-4); Hematocrit 39.3 % (41-53); Lymphocytes Absolute Auto 1300 /uL (1100-4500); Lymphocytes Percent Auto 15.5 % (25-40); Mean Corpuscular HGB Conc 33.1 % (30-36); Mean Corpuscular Hemoglobin 31.2 PG (26-34); Mean Corpuscular Volume 94.3 fL (80-100); Monocytes Absolute Auto 1000 /uL (0-900); Monocytes Percent Auto 11.9 % (3-14); Neutrophils Absolute Auto 5900 /uL (1500-7000); Platelet Count 290 X10^3/uL (150-400); Red Blood Cell Count 4.17 X10^6/uL (4.5-5.9); Red Cell Distribution Width 14.7 % (11.6-14.8); White Blood Cell Count 8.5 X10^3/uL (4.5-11.0)
[2023-11-28 21:13] LABS: Alanine Aminotransferase 29 IU/L (<50); Albumin 4.2 g/dL (3.5-5.0); Albumin Globulin Ratio 1.3 (1.0-2.8); Aspartate Aminotransferase 25 IU/L (17-59); Calcium 10.1 mg/dL (8.4-10.2); Carbon Dioxide 26 mmol/L (22-32); Chloride 107 mmol/L (98-107); Globulin 3.2 g/dL (1.7-4.1); Glucose 129 mg/dL (80-110); HEMOLYSIS < 15 (0-50); Potassium 4.4 mmol/L (3.4-5.1); Sodium 139 mmol/L (137-145); Total Protein 7.4 g/dL (6.3-8.2)
[2023-11-28 21:29] LABS: Alkaline Phosphatase 76 U/L (38-126); BUN Creatinine Ratio 20.7 (6-22); Bilirubin Total 0.8 mg/dL (0.2-1.3); Blood Urea Nitrogen 17 mg/dL (9-20); Estimated Glomerular Filt Rate > 60 mL/min (>60)
== END ==
PROVIDERS: Family Provider Family Medicine; PCP Family Medicine; Visit Provider Family Medicine
DX: R79.89 Other specified abnormal findings of blood chemistry (principal); E87.1 Hypo-osmolality and hyponatremia
CPT/HCPCS: 80053; 85025

== ENCOUNTER → 2024-09-17 10:18 | Outpatient (CLI) | payer MEDICARE, OTHER, SELFPAY ==
[2023-10-08 07:47] VITALS: BMI 30.1
[2024-09-17 19:03] LABS: Add Manual Diff / Slide Review NO; Basophils Absolute Auto 100 /uL (0-100); Basophils Percent Auto 0.7 % (0-2); Eosinophils Absolute Auto 200 /uL (0-450); Eosinophils Percent Auto 2.6 % (2-4); Hematocrit 45.3 % (41-53); Hemoglobin 15.3 g/dL (13.5-17.5); Lymphocytes Absolute Auto 1400 /uL (1100-4500); Lymphocytes Percent Auto 20.3 % (25-40); Mean Corpuscular HGB Conc 33.9 % (30-36); Mean Corpuscular Hemoglobin 31.4 PG (26-34); Mean Corpuscular Volume 92.7 fL (80-100); Monocytes Absolute Auto 800 /uL (0-900); Monocytes Percent Auto 10.8 % (3-14); Neutrophils Absolute Auto 4600 /uL (1500-7000); Neutrophils Percent Auto 65.6 % (50-75); Platelet Count 227 X10^3/uL (150-400); Red Blood Cell Count 4.89 X10^6/uL (4.5-5.9); Red Cell Distribution Width 13.3 % (11.6-14.8)
[2024-09-17 19:19] LABS: Hemoglobin A1C% w Est Avg Glu 5.7 % (4.0-6.0)
[2024-09-17 19:24] LABS: Alanine Aminotransferase 61 IU/L (<50); Albumin 4.2 g/dL (3.5-5.0); Albumin Globulin Ratio 1.4 (1.0-2.8); Alkaline Phosphatase 89 U/L (38-126); Aspartate Aminotransferase 49 IU/L (17-59); BUN Creatinine Ratio 23.7 (6-22); Blood Urea Nitrogen 22 mg/dL (9-20); Carbon Dioxide 27 mmol/L (22-32); Chloride 106 mmol/L (98-107); Cholesterol 127 mg/dL (140-199); Estimated Glomerular Filt Rate > 60 mL/min (>60); Globulin 2.9 g/dL (1.7-4.1); Glucose 120 mg/dL (70-99); HDL Cholesterol 42 mg/dL (40-60); HEMOLYSIS 16 (0-50); LDL Cholesterol Calculated 59 mg/dL (<100); Potassium 4.3 mmol/L (3.4-5.1); Sodium 141 mmol/L (137-145); Total Protein 7.1 g/dL (6.3-8.2); Triglycerides 132 mg/dL (35-150); Uric Acid 5.9 mg/dL (3.5-8.5)
[2024-09-19 07:36] LABS: Adrenocorticotropic Hormone 20.4 pg/mL (7.2-63.3)
== END ==
PROVIDERS: PCP Family Medicine; Visit Provider Family Medicine
DX: R79.89 Other specified abnormal findings of blood chemistry (principal); I25.118 Atherosclerotic heart disease of native coronary artery with other forms of angina pectoris; I48.20 Chronic atrial fibrillation, unspecified; E11.9 Type 2 diabetes mellitus without complications; M10.9 Gout, unspecified; I10 Essential (primary) hypertension; E83.52 Hypercalcemia; E78.5 Hyperlipidemia, unspecified; E87.1 Hypo-osmolality and hyponatremia; R94.31 Abnormal electrocardiogram [ECG] [EKG]; E78.2 Mixed hyperlipidemia; Z79.52 Long term (current) use of systemic steroids; Z79.01 Long term (current) use of anticoagulants; Z95.828 Presence of other vascular implants and grafts
CPT/HCPCS: 80053; 80061; 82024; 83036; 84550; 85025

== ENCOUNTER → 2024-10-15 10:30 | Outpatient (CLI) | payer MEDICARE, OTHER, SELFPAY ==
[2023-10-08 07:47] VITALS: BMI 30.1
[2024-10-15 20:01] LABS: TSH w/ Reflex to FT4 2.73 uIU/mL (0.47-4.68)
== END ==
PROVIDERS: PCP Family Medicine; Visit Provider Family Medicine
DX: I48.20 Chronic atrial fibrillation, unspecified (principal); M35.3 Polymyalgia rheumatica; Z79.52 Long term (current) use of systemic steroids
CPT/HCPCS: 84443

== ENCOUNTER → 2025-03-26 09:07 | Outpatient (CLI) | payer MEDICARE, OTHER, SELFPAY ==
[2025-02-19 09:36] VITALS: BMI 30.1
[2025-03-26 19:05] LABS: Add Manual Diff / Slide Review NO; Hematocrit 44.8 % (41-53); Hemoglobin 15.5 g/dL (13.5-17.5); Lymphocytes Absolute Auto 1300 /uL (1100-4500); Mean Corpuscular HGB Conc 34.6 % (30-36); Mean Corpuscular Hemoglobin 31.8 PG (26-34); Mean Corpuscular Volume 92.0 fL (80-100); Platelet Count 239 X10^3/uL (150-400)
[2025-03-26 19:17] LABS: Hemoglobin A1C% w Est Avg Glu 6.0 % (4.0-6.0)
[2025-03-26 19:21] LABS: Alanine Aminotransferase 26 IU/L (<50); Albumin 4.1 g/dL (3.5-5.0); Albumin Globulin Ratio 1.3 (1.0-2.8); Alkaline Phosphatase 90 U/L (38-126); Blood Urea Nitrogen 18 mg/dL (9-20); Calcium 9.8 mg/dL (8.4-10.2); Carbon Dioxide 27 mmol/L (22-32); Chloride 105 mmol/L (98-107); Cholesterol 129 mg/dL (140-199); Estimated Glomerular Filt Rate > 60 mL/min (>60); Globulin 3.2 g/dL (1.7-4.1); Glucose 118 mg/dL (70-99); HDL Cholesterol 40 mg/dL (40-60); HEMOLYSIS 29 (0-50); Potassium 4.4 mmol/L (3.4-5.1); Sodium 139 mmol/L (137-145); Total Protein 7.3 g/dL (6.3-8.2); Triglycerides 173 mg/dL (35-150); Uric Acid 5.7 mg/dL (3.5-8.5)
[2025-03-26 19:50] LABS: TSH w/ Reflex to FT4 3.47 uIU/mL (0.47-4.68)
== END ==
PROVIDERS: PCP Family Medicine; Visit Provider Family Medicine
DX: I25.118 Atherosclerotic heart disease of native coronary artery with other forms of angina pectoris (principal); R73.9 Hyperglycemia, unspecified; I48.20 Chronic atrial fibrillation, unspecified; I10 Essential (primary) hypertension; E83.52 Hypercalcemia; E78.2 Mixed hyperlipidemia; R94.31 Abnormal electrocardiogram [ECG] [EKG]; M1A.00X0 Idiopathic chronic gout, unspecified site, without tophus (tophi); Z95.828 Presence of other vascular implants and grafts
CPT/HCPCS: 80053; 80061; 83036; 84443; 84550; 85025